=== PATIENT | male | born 1950 | race African-American/Black ===

== ENCOUNTER 2024-04-28 13:59 | Outpatient (AMB) | payer MEDICARE, SELFPAY ==
--- NOTE | 2024-04-28 14:15 | MHC.OFFVIS ---
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 No complaints. 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 Apparently had been seen by [facility] vascular at some point and was having routine surveillance ultrasounds. He reported white coat hypertension and requested to change providers and he now presents to us for vascular evaluation. Upon discussion with him he can easily walk 3-4 blocks with no significant difficulty. He smokes currently about a half a pack per day and is a nondiabetic. Is being maintained on an aspirin and statin. His last ultrasound was done a proximally 6 months prior. He denies any wounds or ulcerations at the current time. He now presents to us for vascular evaluation. Review of Systems Const All systems reviewed & are unremarkable except as noted in HPI and below Reports no additional complaints ENT Reports Normal hearing present Card Denies chest pain, Denies chest pain at rest, Denies chest pain with activity and Denies pedal edema Resp Denies cough GI Denies abdominal pain Musc Denies abnormal gait, Denies muscle cramps and Denies radiating pain into limb Skin/Breast Denies skin ulcer and Denies wounds Neuro Reports Normal hearing present and Denies abnormal gait Psych Reports no additional complaints Physical Exam Const General: cooperative, healthy appearing and comfortable Orientation/consciousness: oriented to person, oriented to place and oriented to time HEENT Head: Yes normal to inspection Neck Neck: Yes normal visual inspection Carotids: no bruits Chest Chest palpation & inspection: normal inspection of the chest Resp Effort & Inspection: normal respiratory effort and able to speak in complete sentences Auscultation: clear to auscultation bilaterally, no crackles, no rales, no rhonchi and no wheezes Cardio Rate: regular rate Rhythm: regular rhythm Heart sounds: S1 normal heart sound present and S2 normal heart sound present Bruits: no carotid bruits Peripheral pulses: Peripheral pulses 2+ throughout GI Inspection: Yes normal to inspection Skin Wounds: no wounds Hair: normal Neuro General: oriented to person, oriented to place and oriented to time Cranial nerves: Yes CN's II-XII intact bilaterally and Yes Normal hearing present Cognition (Neuro): normal cognition Motor exam (neuro): 5/5 motor strength present throughout Extrem Other: venous exam: No significant superficial varicosities or spider telangiectasias, minimal edema General: No clubbing, No cyanosis and No edema Psych Appearance: grossly normal Mental Status: mental status grossly normal Speech and movement: Normal speech and movement present Results Reviewed Results Reviewed: Noninvasive arterial ultrasound dated 10/13/2023 demonstrates ELOISE on the right of 0.6 and on the left of 0.59. Written reports were reviewed only. I did not have access to [facility] images. Assessment & Plan Assessment & Plan (1) PAD (peripheral artery disease): Code(s): I73.9 - Peripheral vascular disease, unspecified Category: Medical Plan: In short patient has stable claudication. I did review the pathophysiology of peripheral vascular disease with the patient. In addition we did discuss routine conservative measures including a healthy diet and the importance of exercise and ambulation. We did discuss risk factor modification in particular smoking cessation. The patient will continue to to follow-up with surveillance follow-up in approximately 6 months which will be a year from his last exam. Thank you for allowing us to participate in this patient's care. If there are any questions or concerns please do not hesitate to contact us. Orders: Orders US arterial duplex LE BI 6 Months I73.9 - Peripheral vascular disease, unspecified Coding Level of Care Code New Pt Level 4 (69098) Complex EM visit Add On G2211 Diagnoses PAD (peripheral artery disease) I73.9
== END 2024-04-28 14:40 | disposition home or self-care (01) ==
PROVIDERS: PCP Family Medicine; Visit Provider Surgery Vascular Surgery
DX: I73.9 Peripheral vascular disease, unspecified (principal)
CPT/HCPCS: 99204; G2211

== ENCOUNTER → 2024-04-28 13:59 | Outpatient (BNVA) | payer MEDICARE, SELFPAY | PROVIDERS: PCP Family Medicine; Visit Provider Surgery Vascular Surgery | DX: I73.9 Peripheral vascular disease, unspecified (principal) | CPT/HCPCS: 99202 ==

== ENCOUNTER 2024-10-20 14:10 | Outpatient (REF) | payer MEDICARE, SELFPAY ==
--- NOTE | ~2024-10-20 | US_ITS ---
EXAMINATION: US NONINVASIVE ASSESSMENT OF THE BILATERAL LOWER EXTREMITY WITH ARTERIAL DUPLEX AND ANKLE BRACHIAL INDICES (ABIS) CLINICAL INFORMATION: Peripheral artery disease. COMPARISON: None available. TECHNIQUE: Duplex Doppler techniques with waveform analysis and measurement of velocities in the common femoral, profunda femoris, superficial femoral, popliteal and tibial arteries were performed. In addition, ankle pulse volume recordings, ankle pressure measurements and ankle brachial indices were obtained of the bilateral lower extremity arterial system. The study was performed only at rest. FINDINGS: AORTA: The proximal and mid aspects are not well seen due to bowel gas. The distal aorta velocity measures 50.6 cm/s. AP diameter of the distal aorta with the true lumen measuring 1.7 cm, and the false lumen measuring 2.8 cm. Maximal diameter = 3.1 cm. RIGHT ILIAC ARTERY: Common = 77.7 cm/s External = 135.6 cm/s (moderate stenosis) LEFT ILIAC ARTERY: Common = 55.5 cm/s External = 188 cm/s (moderate stenosis) NONINVASIVE ASSESSMENT OF THE ARTERIES OF BILATERAL LOWER EXTREMITIES WITH ABIs: RIGHT LEG: Ankle-brachial index: 0.42 Segmental BP: Right DP = 52. Ankle PVR waveforms: Abnormal, monophasic LEFT LEG: Ankle-brachial index: 0.62 Segmental BPD: Left PT = 70 Left DP = 77 Left ankle PVR waveforms: Abnormal, monophasic. ELOISE Reference: 0.9 - 1.4 = normal - no significant arterial disease 0.7 - 0.89 = mild peripheral arterial disease 0.51 - 0.69 = moderate peripheral arterial disease 0.50 = severe peripheral arterial disease FINDINGS: Atheromatous Plaque: Present. RIGHT FEMORAL RUNOFF VELOCITIES: The right common femoral artery measures 114.9 cm/s and monophasic. The right profunda femoral artery is 131.3 cm/s and is monophasic. The right proximal superficial femoral artery measures 69 cm/s and monophasic. The right mid superficial femoral artery is occluded. Collaterals noted. The right distal right superficial femoral artery measures 33.5 cm/s and is monophasic. The right popliteal velocity measures 41.8 cm/s and is monophasic. The right posterior tibial artery velocity measures 16.3 cm/s and is monophasic. The right peroneal artery measures 28.7 cm/s and is monophasic. The right anterior tibial artery measures 42.3 cm/s and is monophasic. The right dorsalis pedis artery measures 29.1 cm/s and is monophasic. LEFT FEMORAL RUNOFF VELOCITIES: The left common femoral artery measures 92.7 cm/s and monophasic. The left profunda femoral artery is 105.4 cm/s and is monophasic. The left proximal superficial femoral artery measures 60.1 cm/s and monophasic. The left mid superficial femoral artery is occluded. The left distal right superficial femoral artery measures 21.9 and is retrograde in flow. There are collaterals present. The left popliteal velocity measures 63.6 cm/s and is monophasic. The left posterior tibial artery velocity measures 35.3 cm/s and is monophasic. The right peroneal artery measures 44.9 cm/s and is monophasic. The right anterior tibial artery measures 31.8 cm/s and is monophasic. The right dorsalis pedis artery measures 16.7 cm/s and is monophasic. US/US arterial duplex BI w/ ELOISE IMPRESSION: 1. Severe bilateral peripheral artery disease. Bilateral abnormal ELOISE's. There is evidence for inflow disease in both CLINICAL SYSTEMS EDUCATOR's. 2. 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 3. Occlusion of the LEFT mid superficial femoral artery with collateralization seen. Retrograde flow in the distal RIGHT superficial femoral artery. 4. Moderate stenoses of both external iliac arteries. 5. Proximal and mid aorta is obscured by gas. 6. Distal aorta measures 3.1 cm maximally. Electronically signed by: Timur Haddad MD 10/21/2024 01:18 PM EDT
--- NOTE | ~2024-10-20 | US_ITS ---
EXAMINATION: US NONINVASIVE ASSESSMENT OF THE BILATERAL LOWER EXTREMITY WITH ARTERIAL DUPLEX AND ANKLE BRACHIAL INDICES (ABIS) CLINICAL INFORMATION: Peripheral artery disease. COMPARISON: None available. TECHNIQUE: Duplex Doppler techniques with waveform analysis and measurement of velocities in the common femoral, profunda femoris, superficial femoral, popliteal and tibial arteries were performed. In addition, ankle pulse volume recordings, ankle pressure measurements and ankle brachial indices were obtained of the bilateral lower extremity arterial system. The study was performed only at rest. FINDINGS: AORTA: The proximal and mid aspects are not well seen due to bowel gas. The distal aorta velocity measures 50.6 cm/s. AP diameter of the distal aorta with the true lumen measuring 1.7 cm, and the false lumen measuring 2.8 cm. Maximal diameter = 3.1 cm. RIGHT ILIAC ARTERY: Common = 77.7 cm/s External = 135.6 cm/s (moderate stenosis) LEFT ILIAC ARTERY: Common = 55.5 cm/s External = 188 cm/s (moderate stenosis) NONINVASIVE ASSESSMENT OF THE ARTERIES OF BILATERAL LOWER EXTREMITIES WITH ABIs: RIGHT LEG: Ankle-brachial index: 0.42 Segmental BP: Right DP = 52. Ankle PVR waveforms: Abnormal, monophasic LEFT LEG: Ankle-brachial index: 0.62 Segmental BPD: Left PT = 70 Left DP = 77 Left ankle PVR waveforms: Abnormal, monophasic. ELOISE Reference: 0.9 - 1.4 = normal - no significant arterial disease 0.7 - 0.89 = mild peripheral arterial disease 0.51 - 0.69 = moderate peripheral arterial disease 0.50 = severe peripheral arterial disease FINDINGS: Atheromatous Plaque: Present. RIGHT FEMORAL RUNOFF VELOCITIES: The right common femoral artery measures 114.9 cm/s and monophasic. The right profunda femoral artery is 131.3 cm/s and is monophasic. The right proximal superficial femoral artery measures 69 cm/s and monophasic. The right mid superficial femoral artery is occluded. Collaterals noted. The right distal right superficial femoral artery measures 33.5 cm/s and is monophasic. The right popliteal velocity measures 41.8 cm/s and is monophasic. The right posterior tibial artery velocity measures 16.3 cm/s and is monophasic. The right peroneal artery measures 28.7 cm/s and is monophasic. The right anterior tibial artery measures 42.3 cm/s and is monophasic. The right dorsalis pedis artery measures 29.1 cm/s and is monophasic. LEFT FEMORAL RUNOFF VELOCITIES: The left common femoral artery measures 92.7 cm/s and monophasic. The left profunda femoral artery is 105.4 cm/s and is monophasic. The left proximal superficial femoral artery measures 60.1 cm/s and monophasic. The left mid superficial femoral artery is occluded. The left distal right superficial femoral artery measures 21.9 and is retrograde in flow. There are collaterals present. The left popliteal velocity measures 63.6 cm/s and is monophasic. The left posterior tibial artery velocity measures 35.3 cm/s and is monophasic. The right peroneal artery measures 44.9 cm/s and is monophasic. The right anterior tibial artery measures 31.8 cm/s and is monophasic. The right dorsalis pedis artery measures 16.7 cm/s and is monophasic. US/US abdominal aortic aneurysm IMPRESSION: 1. Severe bilateral peripheral artery disease. Bilateral abnormal ELOISE's. There is evidence for inflow disease in both EQUIPMENT SERVICES ASSOCIATE's. 2. 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 3. Occlusion of the LEFT mid superficial femoral artery with collateralization seen. Retrograde flow in the distal RIGHT superficial femoral artery. 4. Moderate stenoses of both external iliac arteries. 5. Proximal and mid aorta is obscured by gas. 6. Distal aorta measures 3.1 cm maximally. Electronically signed by: Timur Haddad MD 10/21/2024 01:18 PM EDT
--- OUTSIDE RECORDS SUMMARY | 2024-10-20 17:20 | XMS_ITS | Data Portability ---
Author Organization [facility], Main Office Address [address] [facility] [address] [place] [id number] Care Team Providers Care Equity Manager Name Role Phone TIMOTEO BRONSON Urologist [phone] CONCHA ONTIVEROS Mica Spreader BRITTANY DEGROOT Superintendent Pier STAS WANG Correction Officer [facility] [phone] MARBELLA MIX Correction Officer [facility] CHERRIE SANCHEZ Exerciser ALICE LAM Primary Care Provider JIMMY SIMPSON Vascular Surgeon Assessment No assessment recorded. Plan of Treatment Reminders Order Date Submit Date Provider Last Modified By Organization Details Last Modified Time Details Appointments None recorde d. Lab HbA1c (hemogl obin A1c), blood 2023 [facility], [address], [place], [address], 4 10:06:37 CBC w/ auto diff 2023 024 MIRIAN [facility], [address], [place], [address], 4 10:06:33 CMP, serum or plasma 2023 024 [facility], [address], [place] [address], [address], 4 10:06:34 TSH, ultra-s ensitiv e, serum 2023 024 MIRIAN [facility] (Centralized Electronic Ordering - All Locations), Patient Can Go To The Location Of Their Choice, [id number] 4 10:06:38 magnesi um, serum or plasma 2023 024 M[facility], [address], [address], [place], [address], 4 10:06:39 lipid panel, serum 2023 024 M[facility], [address], [address], [place], [place], [address], 4 10:06:36 PSA, serum or plasma 2023 024 [facility], [address], [address], [place], [place], [address], 4 10:06:36 BMP, serum or plasma 2022 023 [facility], [address], [address], [place], [address], 3 21:57:21 hemoglo bin A1C, fingers tick 2022 023 In-Office Order, Internal Use Only DO Not Attach Compendium DO Not Attach Compendium, Do Not Delete/merge, [id number] 3 14:41:56 PSA, serum or plasma 2022 023 [facility], [address], [address], [place], [address], 3 21:49:13 Referral vascula r surgeon referra l - smoker poor complia nce for AAA and PAD. On ASA, statin, beta colleen added. 2023 024 guru Simpson, [address] [place] [address] Dr, [address], [place], [address], 4 10:38:50 psychia trist referra l - PTSD 2022 023 guru Not available 3 11:02:[address] referra l - BPH with obstruc tive symptom s. Elevate d PSA 2022 023 ugru [facility], [address] [facility], [place], [address], 3 14:02:50 Procedures None recorde d. Surgeries None recorde d. Imaging US, echocar diogram , transth oracic, complet e 2023 024 guru [facility] (Outt Non-Invasive Cardiology Scheduling), [address] [facility], [place], [address], 4 11:20:19 pulse volume recordi ng 2023 024 [email or web address] [facility], [address] [facility], [address], [place], [address], 4 09:17:53 ankle brachia l index, complet e 2023 024 guru [facility], [address] [facility], [address], [place], [address], 4 10:22:17 US, abdomin al aorta 2023 024 [facility] (Ultrasound), [address] [place], [address], 4 14:05:32 LDCT, chest, for lung cancer screeni ng - -The patient does not have lung cancer or signs of lung cancer at this time.-P atient has not had a chest CT in the last 12 months. *SHARED DECISIO N MAKING* I have discuss ed the benefit s and risks of lung cancer screeni ng in complia nce with [facility] shared decisio n making guideli ehsan includi ng early detecti on, radiati on exposur e, false negativ e rates, false positiv e rates, over-di agnosis , inciden frederic finding s, impact of comorbi dities and the ability or willing ness to undergo diagnos is and treatme nt if somethi ng concern ing is found.I have reviewe d with the patient the importa nce of abstine nce if a former smoker, and importa nce of smoking cessati on if a current smoker. I have furnish ed the patient with informa tion and resourc es availab le to quit smoking if appropr iate. 2022 023 [facility], [address] [facility], [place], [address], 13:17:03 Medication Orders metopro lol succina te ER 25 mg tablet, extende d release 24 hr 2023 024 MIRIAN Not available 13:37:46 Patient TargetsNo targets recorded. Patient Instructions Encounter Date Encounter Id Patient Instructions Last Modified By Organization Details Last Modified Time 10/23/2022 [id number] Quitting Tobacco : Care Instructions Not available 10/23/2022 14:41:56 Learning About Benefits of Quitting Smoking Not available 10/23/2022 14:41:56 Quitting Tobacco : Care Instructions Not available 10/23/2022 14:41:56 preventing falls : care instructions Not available 10/23/2022 14:41:56 medicare preventive services guide (male 74 rs and under) Not available 10/23/2022 14:41:57 chronic obstructive pulmonary disease (COPD): care instructions Not available 10/23/2022 14:42:20 dash diet: care instructions Not available 10/23/2022 14:42:46 03/06/2023 [id number] learning about lung cancer screening [email or web address] Not available 03/06/2023 15:21:32 08/07/2023 [id number] deciding about using medicines to quit smoking [email or web address] Not available 08/07/2023 15:24:35 Quitting Tobacco : Care Instructions ckokar Not available 08/07/2023 15:24:35 thoracic aortic aneurysm: care instructions ckokar Not available 08/07/2023 15:24:35 chronic obstructive pulmonary disease (COPD): care instructions ckokar Not available 08/07/2023 15:24:35 deciding about stopping your antidepressant ckokar Not available 08/07/2023 15:24:34 depression and chronic disease: care instructions ckokar Not available 08/07/2023 15:24:34 depression treatment: care instructions ckokar Not available 08/07/2023 15:24:34 Preventing Depression From Coming Back: Care Instructions ckokar Not available 08/07/2023 15:24:34 recovering from depression: care instructions ckokar Not available 08/07/2023 15:24:35 seasonal affecti ve disorder: care instructions ckokar Not available 08/07/2023 15:24:35 suicidal thought s in a family member: care instructions ckokar Not available 08/07/2023 15:24:35 high blood pressure: care instructions ckokar Not available 08/07/2023 15:24:34 learning about high blood pressure ckokar Not available 08/07/2023 15:24:34 03/10/2024 [id number] Peripheral Arterial Disease (PAD): Care Instructions ckokar Not available 03/10/2024 13:37:38 advance care planning: care instructions ckokar Not available 03/10/2024 13:45:13 starting a weigh t loss plan: care instructions ckokar Not available 03/10/2024 13:37:39 well visit, over 65: care instructions ckokar Not available 03/10/2024 13:37:38 preventing falls : care instructions ckokar Not available 03/10/2024 13:37:38 medicare preventive services guide (male 74 rs and under) ckokar Not available 03/10/2024 13:37:38 abnormal weight loss: care instructions ckokar Not available 03/10/2024 13:45:13 Reason for Referral Urologist Referral for Benig n prostatic hyperplasia BPH with obstructive symptoms. Elevated PSA Referring Physician: Ashley Aguilera, Internal Medicine, Encounter Date: 10/23/2022 Psychiatrist Referral for Po sttraumatic stress disorder PTSD Referring Physician: Ashley Aguilera, Internal Medicine, Encounter Date: 10/23/2022 Vascular Surgeon Referral fo r Peripheral vascular disease smoker poor compliance for AAA and PAD. On ASA, statin, beta colleen added. Referring Physician: Alice Lam, Family Medicine, Encounter Date: 03/10/2024 Results Created Date Observation Date Name Description Value Unit Range Abnormal Flag Note LastModifiedBy Organization Detail LastModifiedTime 08/29/1908/28/2021 UA W/REF LISETH CULTU RE appear/color LIGHT YELLO W CLEAR Not Available [facility] (Centralized Electronic Ordering - All Locations) Patient Can Go To The Location Of Their Choice, 08/28/2021 20:45:46 08/29/1908/28/2021 UA W/REF LISETH CULTU RE sp. gravity 1.019 (1.002 -1.030 ) Not Available [facility] (Centralized Electronic Ordering - All Locations) Patient Can Go To The Location Of Their Choice, 08/28/2021 20:45:46 08/29/1908/28/2021 UA W/REF LISETH CULTU RE urine pH 6.5 (5.0-8 .0) Not Available [facility] (Centralized Electronic Ordering - All Locations) Patient Can Go To The Location Of Their Choice, 08/28/2021 20:45:46 08/29/1908/28/2021 UA W/REF LISETH CULTU RE urine albumin TRACE (neg) abnormal Not Available [facility] (Central[facility] Ordering - All Locations) Patient Can Go To The Location Of Their Choice, 08/28/2021 20:45:46 08/29/1908/28/2021 UA W/REF LISETH CULTU RE urine glucose NEGATI VE (neg) Not Available [facility] (Centralized Electronic Ordering - All Locations) Patient Can Go To The Location Of Their Choice, 08/28/2021 20:45:46 08/29/1908/28/2021 UA W/REF LISETH CULTU RE urine ketones NEGATI VE (neg) Not Available [facility] (Centralized Electronic Ordering - All Locations) Patient Can Go To The Location Of Their Choice, 08/28/2021 20:45:46 08/29/1908/28/2021 UA W/REF LISETH CULTU RE urine bilirubin NEGATI VE (neg) Not Available [facility] (Centralized Electronic Ordering - All Locations) Patient Can Go To The Location Of Their Choice, 08/28/2021 20:45:46 08/29/1908/28/2021 UA W/REF LISETH CULTU RE urine hemoglobin NEGATI VE (neg) Not Available [facility] (Centralized Electronic Ordering - All Locations) Patient Can Go To The Location Of Their Choice, 08/28/2021 20:45:46 08/29/1908/28/2021 UA W/REF LISETH CULTU RE urine nitrite NEGATI VE (neg) Not Available [facility] (Centralized Electronic Ordering - All Locations) Patient Can Go To The Location Of Their Choice, 08/28/2021 20:45:46 08/29/1908/28/2021 UA W/REF LISETH CULTU RE urine leukocyte NEGATI VE (neg) Not Available [facility] (Centralized Electronic Ordering - All Locations) Patient Can Go To The Location Of Their Choice, 08/28/2021 20:45:46 08/29/1908/28/2021 UA W/REF LISETH CULTU RE urobilinogen NORMAL mg/dL (norm) Not Available [facility] (Central[facility] Ordering - All Locations) Patient Can Go To The Location Of Their Choice, 08/28/2021 20:45:46 08/29/1908/28/2021 UA W/REF LISETH CULTU RE urine WBCs 2 /hpf (0-5) Not Available [facility] (Centralized Electronic Ordering - All Locations) Patient Can Go To The Location Of Their Choice, 08/28/2021 20:45:46 08/29/1908/28/2021 UA W/REF LISETH CULTU RE urine RBCs 1 /hpf (0-3) Not Available [facility] (Centralized Electronic Ordering - All Locations) Patient Can Go To The Location Of Their Choice, 08/28/2021 20:45:46 08/29/19 22 08/28/2021 UA W/REF LISETH CULTU RE mucus SLIGHT /lpf Not Available [facility] (Centralized Electronic Ordering - All Locations) Patient Can Go To The Location Of Their Choice, 08/28/2021 20:45:46 08/29/1908/28/2021 UA W/REF LISETH CULTU RE squamous epith <1 /hpf (0-8) Not Available [facility] (Central[facility] Ordering - All Locations) Patient Can Go To The Location Of Their Choice, 08/28/2021 20:45:46 08/29/19 22 08/28/2021 UA W/REF LISETH CULTU RE clarity CLEAR (clear ) Not Available [facility] (Centralized Electronic Ordering - All Locations) Patient Can Go To The Location Of Their Choice, 08/28/2021 20:45:46 08/29/19 22 08/28/2021 UA W/REF LISETH CULTU RE culture indication CULTUR E NOT INDICA MELONY Not Available [facility] (Centralized Electronic Ordering - All Locations) Patient Can Go To The Location Of Their Choice, 08/28/2021 20:45:46 08/29/1908/28/2021 HEMOG LOBIN A1C hemoglobin A1C 6.3 % (4.0-5 .6) high MONIT ORING : In known diabe tic patie nts, hemog lobin A1c targe ts shoul d be discu ssed with healt h care provi em. DIAGN OSTIC USE: The Ameri can Diabe ross Assoc iatio n (ADA) and the World Healt h Organ izati on (WHO) recom mend the use of HbA1c to diagn ose diabe ross using a thres hold of 6.5%. Patie nts who have an HbA1c betwe en 5.7% and 6.4% are consi dered at incre ased risk for devel oping diabe ross in the futur eElsy CAUTI ON: False ly low HbA1c resul ts may be obser skylar in patie nts with hemol ytic anemi a, homoz ygous forms of abnor mal hemog lobin (e.g. SS, CC, SC), pregn christa, recen t blood loss or hemog lobin F great er than 7%. Fruct osami ne may be used as an alter nora test in these cases . REFER ENCE: ADA: Stand ards of Medic al Care in Diabe ross 2019, The Journ al of Clini lisa and Appli ed Resea rch and Educa tion Volum e 43, Suppl ement 1 Not Available [facility] (Centralized Electronic Ordering - All Locations) Patient Can Go To The Location Of Their Choice, 08/28/2021 20:52:53 08/29/1908/28/2021 SEDIM ENTAT ION RATE, AUTOM ATED sedimentatio n rate,automat ed 17 mm/HR (0-15) high Not Available [facility] (Centralized Electronic Ordering - All Locations) Patient Can Go To The Location Of Their Choice, 08/28/2021 20:56:20 08/29/1908/28/2021 COMPL ETE CBC WITH DIFF WBC 8.2 K/mm3 (4.0-1 1.0) Not Available [facility] (Centralized Electronic Ordering - All Locations) Patient Can Go To The Location Of Their Choice, 08/28/2021 21:27:57 08/29/19 22 08/28/2021 COMPL ETE CBC WITH DIFF RBC 5.57 M/mm3 (4.70- 6.10) Not Available [facility] (Centralized Electronic Ordering - All Locations) Patient Can Go To The Location Of Their Choice, 08/28/2021 21:27:57 08/29/19 22 08/28/2021 COMPL ETE CBC WITH DIFF HGB 15.2 gm/dL (13.7- 17.1) Not Available [facility] (Centralized Electronic Ordering - All Locations) Patient Can Go To The Location Of Their Choice, 08/28/2021 21:27:57 08/29/1908/28/2021 COMPL ETE CBC WITH DIFF HCT 48.1 % (40.5- 50.0) Not Available [facility] (Centralized Electronic Ordering - All Locations) Patient Can Go To The Location Of Their Choice, 08/28/2021 21:27:57 08/29/1908/28/2021 COMPL ETE CBC WITH DIFF MCV 86.4 fL (80.0- 94.0) Not Available [facility] (Centralized Electronic Ordering - All Locations) Patient Can Go To The Location Of Their Choice, 08/28/2021 21:27:57 08/29/19 22 08/28/2021 COMPL ETE CBC WITH DIFF MCH 27.3 pg (27.0- 34.0) Not Available [facility] (Centralized Electronic Ordering - All Locations) Patient Can Go To The Location Of Their Choice, 08/28/2021 21:27:57 08/29/1908/28/2021 COMPL ETE CBC WITH DIFF MCHC 31.6 g/dL (33.0- 37.0) low Not Available [facility] (Centralized Electronic Ordering - All Locations) Patient Can Go To The Location Of Their Choice, 08/28/2021 21:27:57 08/29/19 22 08/28/2021 COMPL ETE CBC WITH DIFF plt 250 K/mm3 (150-4 60) Not Available [facility] (Centralized Electronic Ordering - All Locations) Patient Can Go To The Location Of Their Choice, 08/28/2021 21:27:57 08/29/19 22 08/28/2021 COMPL ETE CBC WITH DIFF RDW-SD 46.7 fL (<47.0 ) Not Available [facility] (Centralized Electronic Ordering - All Locations) Patient Can Go To The Location Of Their Choice, 08/28/2021 21:27:57 08/29/19 22 08/28/2021 COMPL ETE CBC WITH DIFF MPV 11.0 fL (9.4-1 2.4) Not Available [facility] (Centralized Electronic Ordering - All Locations) Patient Can Go To The Location Of Their Choice, 08/28/2021 21:27:57 08/29/1908/28/2021 COMPL ETE CBC WITH DIFF automated NRBC 0.0 #/100 _WBC' s Not Available [facility] (Centralized Electronic Ordering - All Locations) Patient Can Go To The Location Of Their Choice, 08/28/2021 21:27:57 08/29/19 22 08/28/2021 COMPL ETE CBC WITH DIFF abs. NRBC 0.0 K/mm3 Not Available [facility] (Centralized Electronic Ordering - All Locations) Patient Can Go To The Location Of Their Choice, 08/28/2021 21:27:57 08/29/19 22 08/28/2021 COMPL ETE CBC WITH DIFF neut # 4.8 K/mm3 (1.3-7 .0) Not Available [facility] (Centralized Electronic Ordering - All Locations) Patient Can Go To The Location Of Their Choice, 08/28/2021 21:27:57 08/29/1908/28/2021 COMPL ETE CBC WITH DIFF lymph # 2.3 K/mm3 (0.8-3 .1) Not Available [facility] (Centralized Electronic Ordering - All Locations) Patient Can Go To The Location Of Their Choice, 08/28/2021 21:27:57 08/29/1908/28/2021 COMPL ETE CBC WITH DIFF mono# 0.9 K/mm3 (0.4-1 .3) Not Available [facility] (Centralized Electronic Ordering - All Locations) Patient Can Go To The Location Of Their Choice, 08/28/2021 21:27:57 08/29/1908/28/2021 COMPL ETE CBC WITH DIFF eo # 0.1 K/mm3 (0.0-0 .4) Not Available [facility] (Centralized Electronic Ordering - All Locations) Patient Can Go To The Location Of Their Choice, 08/28/2021 21:27:57 08/29/1908/28/2021 COMPL ETE CBC WITH DIFF baso # 0.0 K/mm3 (0.0-0 .1) Not Available [facility] (Centralized Electronic Ordering - All Locations) Patient Can Go To The Location Of Their Choice, 08/28/2021 21:27:57 08/29/1908/28/2021 COMPL ETE CBC WITH DIFF abs. imm gran 0.0 K/mm3 Not Available [facility] ([facility]ized [facility] Ordering - All Locations) Patient Can Go To The Location Of Their Choice, 08/28/2021 21:27:57 08/29/1908/28/2021 COMPL ETE CBC WITH DIFF neut 58.1 % (44-76 ) Not Available [facility] (Centralized Electronic Ordering - All Locations) Patient Can Go To The Location Of Their Choice, 08/28/2021 21:27:57 08/29/1908/28/2021 COMPL ETE CBC WITH DIFF lymph 28.3 % (15-43 ) Not Available [facility] (Centralized Electronic Ordering - All Locations) Patient Can Go To The Location Of Their Choice, 08/28/2021 21:27:57 08/29/1908/28/2021 COMPL ETE CBC WITH DIFF monocyte 11.1 % (4.5-1 0.5) high Not Available [facility] (Centralized Electronic Ordering - All Locations) Patient Can Go To The Location Of Their Choice, 08/28/2021 21:27:57 08/29/19 22 08/28/2021 COMPL ETE CBC WITH DIFF eo 1.7 % (0-6) Not Available [facility] (Centralized Electronic Ordering - All Locations) Patient Can Go To The Location Of Their Choice, 08/28/2021 21:27:57 08/29/19 22 08/28/2021 COMPL ETE CBC WITH DIFF baso 0.4 % (0-2) Not Available [facility] (Centralized Electronic Ordering - All Locations) Patient Can Go To The Location Of Their Choice, 08/28/2021 21:27:57 08/29/19 22 08/28/2021 COMPL ETE CBC WITH DIFF imm gran 0.4 % Not Available [facility] (Centralized Electronic Ordering - All Locations) Patient Can Go To The Location Of Their Choice, 08/28/2021 21:27:57 08/29/1908/28/2021 HEMOG LOBIN A1C hemoglobin A1C 6.3 % (4.0-5 .6) high MONIT ORING : In known diabe tic patie nts, hemog lobin A1c targe ts shoul d be discu ssed with healt h care provi em. DIAGN OSTIC USE: The Ameri can Diabe ross Assoc iatio n (ADA) and the World Healt h Organ izati on (WHO) recom mend the use of HbA1c to diagn ose diabe ross using a thres hold of 6.5%. Patie nts who have an HbA1c betwe en 5.7% and 6.4% are consi dered at incre ased risk for devel oping diabe ross in the futur e. CAUTI ON: False ly low HbA1c resul ts may be obser skylar in patie nts with hemol ytic anemi a, homoz ygous forms of abnor mal hemog lobin (e.g. SS, CC, SC), pregn christa, recen t blood loss or hemog lobin F great er than 7%. Fruct osami ne may be used as an alter nora test in these cases . REFER ENCE: ADA: Stand ards of Medic al Care in Diabe ross 2019, The Journ al of Clini lisa and Appli ed Resea [facility] and Educa tion Volum e 43, Suppl ement 1 Not Available [facility] (Centralized Electronic Ordering - All Locations) Patient Can Go To The Location Of Their Choice, 08/28/2021 21:39:27 08/29/1908/29/2021 COMPR EHENS MUMTAZ METAB OLIC PANL glucose 103 mg/dL (70-99 ) high Not Available [facility] (Centralized Electronic Ordering - All Locations) Patient Can Go To The Location Of Their Choice, 08/29/2021 02:21:04 08/29/1908/29/2021 COMPR EHENS MUMTAZ METAB OLIC PANL BUN 14 mg/dL (8-23) Not Available [facility] (Centralized Electronic Ordering - All Locations) Patient Can Go To The Location Of Their Choice, 08/29/2021 02:21:08/29/19 22 08/29/2021 COMPR EHENS MUMTAZ METAB OLIC PANL creatinine 0.8 mg/dL (0.7-1 .2) Not Available [facility] (Centralized Electronic Ordering - All Locations) Patient Can Go To The Location Of Their Choice, 08/29/2021 02:21:04 08/29/19 22 08/29/2021 COMPR EHENS MUMTAZ METAB OLIC PANL sodium 140 mmol/ L (133-1 45) Not Available [facility] (Centralized Electronic Ordering - All Locations) Patient Can Go To The Location Of Their Choice, 08/29/2021 02:21:04 08/29/1908/29/2021 COMPR EHENS MUMTAZ METAB OLIC PANL potassium 4.5 mmol/ L (3.6-5 .2) Not Available [facility] (Centralized Electronic Ordering - All Locations) Patient Can Go To The Location Of Their Choice, 08/29/2021 02:21:04 08/29/19 22 08/29/2021 COMPR EHENS MUMTAZ METAB OLIC PANL chloride 101 mmol/ L (98-10 7) Not Available [facility] (Centralized Electronic Ordering - All Locations) Patient Can Go To The Location Of Their Choice, 08/29/2021 02:21:08/29/19 22 08/29/2021 COMPR EHENS MUMTAZ METAB OLIC PANL bicarbonate 30 mmol/ L (22-29 ) high Not Available [facility] (Centralized Electronic Ordering - All Locations) Patient Can Go To The Location Of Their Choice, 08/29/2021 02:21:08/29/19 22 08/29/2021 COMPR EHENS MUMTAZ METAB OLIC PANL anion gap 9 (4-17) Not Available [facility] (Centralized Electronic Ordering - All Locations) Patient Can Go To The Location Of Their Choice, 08/29/2021 02:21:08/29/19 22 08/29/2021 COMPR EHENS MUMTAZ METAB OLIC PANL albumin 4.4 gm/dL (3.4-4 .8) Not Available [facility] (Centralized Electronic Ordering - All Locations) Patient Can Go To The Location Of Their Choice, 08/29/2021 02:21:08/29/19 22 08/29/2021 COMPR EHENS MUMTAZ METAB OLIC PANL calcium 9.3 mg/dL (8.6-1 0.5) Not Available [facility] (Centralized Electronic Ordering - All Locations) Patient Can Go To The Location Of Their Choice, 08/29/2021 02:21:04 08/29/19 22 08/29/2021 COMPR EHENS MUMTAZ METAB OLIC PANL bilirubin,to frederic 0.3 mg/dL (0-1.2 ) Not Available [facility] (Centralized Electronic Ordering - All Locations) Patient Can Go To The Location Of Their Choice, 08/29/2021 02:21:04 08/29/19 22 08/29/2021 COMPR EHENS MUMTAZ METAB OLIC PANL total protein 7.1 gm/dL (6.2-8 .2) Not Available [facility] (Centralized Electronic Ordering - All Locations) Patient Can Go To The Location Of Their Choice, 08/29/2021 02:21:04 08/29/19 22 08/29/2021 COMPR EHENS MUMTAZ METAB OLIC PANL Ag ratio 1.6 Not Available [facility] (Centralized Electronic Ordering - All Locations) Patient Can Go To The Location Of Their Choice, 08/29/2021 02:21:04 08/29/19 22 08/29/2021 COMPR EHENS MUMTAZ METAB OLIC PANL AST 17 U/L (0-40) Not Available [facility] (Centralized Electronic Ordering - All Locations) Patient Can Go To The Location Of Their Choice, 08/29/2021 02:21:08/29/19 22 08/29/2021 COMPR EHENS MUMTAZ METAB OLIC PANL alk phos 80 U/L (40-12 9) Not Available [facility] (Centralized Electronic Ordering - All Locations) Patient Can Go To The Location Of Their Choice, 08/29/2021 02:21:04 08/29/1908/29/2021 COMPR EHENS MUMTAZ METAB OLIC PANL ALT 19 U/L (0-41) Not Available [facility] (Centralized Electronic Ordering - All Locations) Patient Can Go To The Location Of Their Choice, 08/29/2021 02:21:04 08/29/1908/29/2021 COMPR EHENS MUMTAZ METAB OLIC PANL estimated GFR creatinine 94 mL/mi n/1.7 3_M2 Creat inine based estim ated glome rular filtr ation (eGFR ) in adult s is calcu lated using the [facility] ation recom [place] d 2020 CKD-E PI equat ion. Estim ates GFR from serum creat inine , age and sex. Not Available [facility] (Centralized Electronic Ordering - All Locations) Patient Can Go To The Location Of Their Choice, 08/29/2021 02:21:08/29/1908/29/2021 LIPID PANEL cholesterol, total 182 mg/dL (<200) Not Available [facility] ([facility] Ordering - All Locations) Patient Can Go To The Location Of Their Choice, 08/29/2021 02:21:08/29/19 22 08/29/2021 LIPID PANEL triglyceride 57 mg/dL (<150) Not Available [facility] ([facility] Order[facility] - All Locations) Patient Can Go To The Location Of Their Choice, 08/29/2021 02:21:08/29/1908/29/2021 LIPID PANEL HDL chol 52 mg/dL (>39) Not Available [facility] (Centralized Electronic Ordering - All Locations) Patient Can Go To The Location Of Their Choice, 08/29/2021 02:21:05 08/29/1908/29/2021 LIPID PANEL LDL cholesterol, calculated 119 mg/dL (0-130 ) Not Available [facility] (Centralized Electronic Ordering - All Locations) Patient Can Go To The Location Of Their Choice, 08/29/2021 02:21:05 08/29/1908/29/2021 LIPID PANEL non HDL cholesterol (calc) 130 mg/dL (<160) Not Available [facility] ([facility] Ordering - All Locations) Patient Can Go To The Location Of Their Choice, 08/29/2021 02:21:05 08/29/1908/29/2021 MAGNE SIUM magnesium 2.2 mg/dL (1.6-2 .3) Not Available [facility] (Centralized Electronic Ordering - All Locations) Patient Can Go To The Location Of Their Choice, 08/29/2021 02:21:07 08/29/1908/29/2021 PSA PSA 4.0 NG/mL (0-4) TEST PERFO RMED USING THE NORAH ELECT NORAH MILLU [employer] CENCE TOTAL PSA ASSAY . PSA VALUE S OBTAI ANDREINA WITH OTHER ASSAY METHO DS OR KITS CANNO T BE USED INTER ROBBINS EABLY . Not Available [facility] (Centralized Electronic Ordering - All Locations) Patient Can Go To The Location Of Their Choice, 08/29/2021 02:43:46 08/29/1908/29/2021 TSH WITH REFLE X TO FT4 TSH 0.49 uIU/m L (0.4-4 .2) Not Available [facility] (Centralized Electronic Ordering - All Locations) Patient Can Go To The Location Of Their Choice, 08/29/2021 02:43:49 08/29/1908/29/2021 BASIC METAB OLIC PANEL glucose 103 mg/dL (70-99 ) high Not Available [facility] (Centralized Electronic Ordering - All Locations) Patient Can Go To The Location Of Their Choice, 08/29/2021 02:54:32 08/29/1908/29/2021 BASIC METAB OLIC PANEL BUN 14 mg/dL (8-23) Not Available [facility] (Centralized Electronic Ordering - All Locations) Patient Can Go To The Location Of Their Choice, 08/29/2021 02:54:32 08/29/1908/29/2021 BASIC METAB OLIC PANEL creatinine 0.8 mg/dL (0.7-1 .2) Not Available [facility] (Centralized Electronic Ordering - All Locations) Patient Can Go To The Location Of Their Choice, 08/29/2021 02:54:32 08/29/1908/29/2021 BASIC METAB OLIC PANEL sodium 140 mmol/ L (133-1 45) Not Available [facility] (Centralized Electronic Ordering - All Locations) Patient Can Go To The Location Of Their Choice, 08/29/2021 02:54:32 08/29/1908/29/2021 BASIC METAB OLIC PANEL potassium 4.5 mmol/ L (3.6-5 .2) Not Available [facility] (Centralized Electronic Ordering - All Locations) Patient Can Go To The Location Of Their Choice, 08/29/2021 02:54:32 08/29/1908/29/2021 BASIC METAB OLIC PANEL chloride 101 mmol/ L (98-10 7) Not Available [facility] (Centralized Electronic Ordering - All Locations) Patient Can Go To The Location Of Their Choice, 08/29/2021 02:54:32 08/29/1908/29/2021 BASIC METAB OLIC PANEL bicarbonate 30 mmol/ L (22-29 ) high Not Available [facility] (Centralized Electronic Ordering - All Locations) Patient Can Go To The Location Of Their Choice, 08/29/2021 02:54:32 08/29/1908/29/2021 BASIC METAB OLIC PANEL anion gap 9 (4-17) Not Available [facility] (Centralized Electronic Ordering - All Locations) Patient Can Go To The Location Of Their Choice, 08/29/2021 02:54:32 08/29/1908/29/2021 BASIC METAB OLIC PANEL calcium 9.3 mg/dL (8.6-1 0.5) Not Available [facility] (Centralized Electronic Ordering - All Locations) Patient Can Go To The Location Of Their Choice, 08/29/2021 02:54:32 08/29/19 22 08/29/2021 BASIC METAB OLIC PANEL estimated GFR creatinine 94 mL/mi n/1.7 3_M2 Creat inine based estim ated glome cherry pimentel ation (eGFR ) in adult s is calcu lated using the Natio nal Kidne y Found ation recom [place] d 2020 CKD-E PI equat ion. Estim ates GFR from serum creat inine , age and sex. Not Available [facility] (Centralized Electronic Ordering - All Locations) Patient Can Go To The Location Of Their Choice, 08/29/2021 02:54:32 08/29/1908/29/2021 FOLIC ACID folic acid 14.7 NG/mL (4.5-3 2.2) Sampl e sligh tly hemol yzed. Resul ts may be false ly eleva melony due to hemol ysis. Not Available [facility] (Centralized Electronic Ordering - All Locations) Patient Can Go To The Location Of Their Choice, 08/29/2021 03:19:47 08/29/1908/29/2021 VITAM IN B12 vitamin B12 748 pg/mL (232-1 245) Not Available [facility] (Centralized Electronic Ordering - All Locations) Patient Can Go To The Location Of Their Choice, 08/29/2021 03:51:19 08/29/1908/29/2021 SYPHI LIS TESTI NG syphilis screen by mike (neg) normal NEGAT MUMTAZ Refer ence range : Negat mumtaz This test was perfo rmed on the Abbot t Archi tect immun oassa y syste m. Not Available [facility] (Centralized Electronic Ordering - All Locations) Patient Can Go To The Location Of Their Choice, 08/29/2021 08:59:42 08/29/1908/29/2021 SYPHI LIS TESTI NG RPR titer result NOT INDICA MELONY Not Available [facility] (Centralized Electronic Ordering - All Locations) Patient Can Go To The Location Of Their Choice, 08/29/2021 08:59:42 08/29/19 22 08/29/2021 SYPHI LIS TESTI NG tppa result NOT INDICA MELONY Not Available [facility] (Centralized Electronic Ordering - All Locations) Patient Can Go To The Location Of Their Choice, [id number] 08/29/2021 08:59:42 08/29/1908/29/2021 SYPHI LIS TESTI NG syphilis interpretati on Indic ative of the absen ce of infec tion with Trepo nemal palli dum. Test may be negat mumtaz in cases of incub ating or early prima ry syphi lis. Consi em repea t testi ng in sever al weeks if clini lisa suspi cion is high. Not Available [facility] (Centralized Electronic Ordering - All Locations) Patient Can Go To The Location Of Their Choice, 08/29/2021 08:59:42 10/24/19 23 10/23/2022 hemog lobin A1C, finge rstic k A1C 6.1 % 4-6 abnormal Not Available In-Office Order Internal Use Only DO Not Attach Compendium DO Not Attach Compendium, Do Not Delete/merge, [id number] 10/23/2022 14:37:32 03/06/20 23 03/06/2023 PSA SCREE N PSA 4.3 NG/mL (0-4) high TEST PERFO RMED USING THE NORAH ELECT NORAH MILLU MINES CENCE TOTAL PSA ASSAY . PSA VALUE S OBTAI ANDREINA WITH OTHER ASSAY METHO DS OR KITS CANNO T BE USED INTER ROBBINS EAVIVY . Not Available [facility] (Centralized Electronic Ordering - All Locations) Patient Can Go To The Location Of Their Choice, 03/06/2023 21:49:13 03/06/2003/06/2023 BASIC METAB OLIC PANEL glucose 97 mg/dL (70-99 ) Not Available [facility] (Centralized Electronic Ordering - All Locations) Patient Can Go To The Location Of Their Choice, 03/06/2023 21:57:21 03/06/2003/06/2023 BASIC METAB OLIC PANEL BUN 13 mg/dL (8-23) Not Available [facility] (Centralized Electronic Ordering - All Locations) Patient Can Go To The Location Of Their Choice, 03/06/2023 21:57:21 03/06/20 23 03/06/2023 BASIC METAB OLIC PANEL creatinine 0.9 mg/dL (0.7-1 .2) Not Available [facility] (Centralized Electronic Ordering - All Locations) Patient Can Go To The Location Of Their Choice, [id number] 03/06/2023 21:57:21 03/06/2003/06/2023 BASIC METAB OLIC PANEL sodium 141 mmol/ L (133-1 45) Not Available [facility] ([facility]ized Electronic Ordering - All Locations) Patient Can Go To The Location Of Their Choice, [id number] 03/06/2023 21:57:21 03/06/2003/06/2023 BASIC METAB OLIC PANEL potassium 4.4 mmol/ L (3.6-5 .2) Not Available [facility] (Centralized Electronic Ordering - All Locations) Patient Can Go To The Location Of Their Choice, [id number] 03/06/2023 21:57:21 03/06/2003/06/2023 BASIC METAB OLIC PANEL chloride 101 mmol/ L (98-10 7) Not Available [facility] (Centralized Electronic Ordering - All Locations) Patient Can Go To The Location Of Their Choice, [id number] 03/06/2023 21:57:21 03/06/2003/06/2023 BASIC METAB OLIC PANEL bicarbonate 31 mmol/ L (22-29 ) high Not Available [facility] (Centralized Electronic Ordering - All Locations) Patient Can Go To The Location Of Their Choice, [id number] 03/06/2023 21:57:21 03/06/2003/06/2023 BASIC METAB OLIC PANEL anion gap 9 (4-17) Not Available [facility] (Centralized Electronic Ordering - All Locations) Patient Can Go To The Location Of Their Choice, [id number] 03/06/2023 21:57:21 03/06/2003/06/2023 BASIC METAB OLIC PANEL calcium 9.5 mg/dL (8.6-1 0.5) Not Available [facility] ([facility]ized Electronic Ordering - All Locations) Patient Can Go To The Location Of Their Choice, [id number] 03/06/2023 21:57:21 03/06/2003/06/2023 BASIC METAB OLIC PANEL estimated GFR creatinine 92 mL/mi n/1.7 3_M2 Creat inine based estim ated glome cherry isaactr ation (eGFR ) in adult s is calcu lated using the Natio nal Kidne y Found ation recom [place] d 2020 CKD-E PI equat ion. Estim ates GFR from serum creat inine , age and sex. Not Available [facility] (Centralized Electronic Ordering - All Locations) Patient Can Go To The Location Of Their Choice, [id number] 03/06/2023 21:57:21 03/17/2003/18/2024 CBC WITH DIFFE RENTI AL/PL ATELE T WBC 9.0 x10e3 /uL 3.4-10 .8 normal Eff ectiv e Decem mellissa 2023 profi radha [id number] 5 WBC will be made* * non-o rdera ble as a stand -jina e order code. Not Available [facility] ([facility]) [address] [place], [address], 03/18/2024 10:06:33 03/17/20 24 03/18/2024 CBC WITH DIFFE RENTI AL/PL ATELE T RBC 5.55 x10e6 /uL 4.14-5 .80 normal Not Available [facility] ([facility]) [address] [place], [address], 03/18/2024 10:06:33 03/17/20 24 03/18/2024 CBC WITH DIFFE RENTI AL/PL ATELE T hemoglobin 15.3 g/dL 13.0-1 7.7 normal Not Available [facility] ([facility]) [address] [place], [address], 03/18/2024 10:06:33 03/17/20 24 03/18/2024 CBC WITH DIFFE RENTI AL/PL ATELE T hematocrit 48.6 % 37.5-5 1.0 normal Not Available [facility] ([facility]) [address] [place], [address], 03/18/2024 10:06:33 03/17/20 24 03/18/2024 CBC WITH DIFFE RENTI AL/PL ATELE T MCV 88 fL 79-97 normal Not Available [facility] ([facility]) [address] [place], [address], 03/18/2024 10:06:33 03/17/20 24 03/18/2024 CBC WITH DIFFE RENTI AL/PL ATELE T MCH 27.6 pg 26.6-3 3.0 normal Not Available [facility] ([facility]) [address] [place], [address], 03/18/2024 10:06:33 03/17/20 24 03/18/2024 CBC WITH DIFFE RENTI AL/PL ATELE T MCHC 31.5 g/dL 31.5-3 5.7 normal Not Available [facility] ([facility]) [address] [place], [address], 03/18/2024 10:06:33 03/17/20 24 03/18/2024 CBC WITH DIFFE RENTI AL/PL ATELE T RDW 14.0 % 11.6-1 5.4 Not Available [facility] ([facility]) [address] [place], [address], 03/18/2024 10:06:33 03/17/20 24 03/18/2024 CBC WITH DIFFE RENTI AL/PL ATELE T platelets 267 x10e3 /uL 150-45 0 normal Not Available [facility] ([facility]) [address] [place], [address], 03/18/2024 10:06:33 03/17/20 24 03/18/2024 CBC WITH DIFFE RENTI AL/PL ATELE T neutrophils 61 % not estab. normal Not Available [facility] ([facility]) [address] [place], [address], 03/18/2024 10:06:33 03/17/20 24 03/18/2024 CBC WITH DIFFE RENTI AL/PL ATELE T lymphs 26 % not estab. normal Not Available [facility] ([facility]) [address] [place], [address], 03/18/2024 10:06:33 03/17/20 24 03/18/2024 CBC WITH DIFFE RENTI AL/PL ATELE T monocytes 11 % not estab. normal Not Available [facility] ([facility]) [address] [facility], [place], [address], 03/18/2024 10:06:33 03/17/20 24 03/18/2024 CBC WITH DIFFE RENTI AL/PL ATELE T eos 2 % not estab. normal Not Available [facility] ([facility]) [address] [place], [address], 03/18/2024 10:06:33 03/17/20 24 03/18/2024 CBC WITH DIFFE RENTI AL/PL ATELE T basos 0 % not estab. normal Not Available [facility] ([facility]) [address] [place], [address], 03/18/2024 10:06:33 03/17/20 24 03/18/2024 CBC WITH DIFFE RENTI AL/PL ATELE T immature cells SANITOR Not Available [facility] ([facility]) [address] [place], [address], 03/18/2024 10:06:33 03/17/20 24 03/18/2024 CBC WITH DIFFE RENTI AL/PL ATELE T neutrophils (absolute) 5.4 x10e3 /uL 1.4-7. 0 normal Not Available [facility] ([facility]) [address] [place], [address], 03/18/2024 10:06:33 03/17/20 24 03/18/2024 CBC WITH DIFFE RENTI AL/PL ATELE T lymphs (absolute) 2.3 x10e3 /uL 0.7-3. 1 normal Not Available [facility] ([facility]) [address] [place], [address], 03/18/2024 10:06:33 03/17/20 24 03/18/2024 CBC WITH DIFFE RENTI AL/PL ATELE T monocytes(ab solute) 1.0 x10e3 /uL 0.1-0. 9 above high normal Not Available [facility] ([facility]) [address] [facility], [place], [address], 03/18/2024 10:06:33 03/17/20 24 03/18/2024 CBC WITH DIFFE RENTI AL/PL ATELE T eos (absolute) 0.2 x10e3 /uL 0.0-0. 4 normal Not Available [facility] ([facility]) [address] [place], [address], 03/18/2024 10:06:33 03/17/20 24 03/18/2024 CBC WITH DIFFE RENTI AL/PL ATELE T baso (absolute) 0.0 x10e3 /uL 0.0-0. 2 normal Not Available [facility] ([facility]) [address] [facility], [place], [address], 03/18/2024 10:06:33 03/17/20 24 03/18/2024 CBC WITH DIFFE RENTI AL/PL ATELE T immature granulocytes 0 % not estab. Not Available [facility] ([facility]) [address] [place], [address], 03/18/2024 10:06:33 03/17/20 24 03/18/2024 CBC WITH DIFFE RENTI AL/PL ATELE T immature grans (abs) 0.0 x10e3 /uL 0.0-0. 1 Not Available [facility] ([facility]) [address] [place], [address], 03/18/2024 10:06:33 03/17/20 24 03/18/2024 CBC WITH DIFFE RENTI AL/PL ATELE T NRBC SANITOR Not Available [facility] ([facility]) [address] [place], [address], 03/18/2024 10:06:33 03/17/20 24 03/18/2024 CBC WITH DIFFE MARCEL AL/JOSE Rao hematology comments: SANITOR Not Available [facility] ([facility]) [address] [facility], [place], [address], 03/18/2024 10:06:33 03/17/20 24 03/18/2024 COMP. METAB OLIC PANEL (14) glucose 94 mg/dL 70-99 normal Not Available [facility] ([facility]) [address] [facility], [place], [address], 03/18/2024 10:06:34 03/17/20 24 03/18/2024 COMP. METAB OLIC PANEL (14) BUN 19 mg/dL 8-27 normal Not Available [facility] ([facility]) [address] [facility], [place], [address], 03/18/2024 10:06:34 03/17/20 24 03/18/2024 COMP. METAB OLIC PANEL (14) creatinine 0.93 mg/dL 0.76-1 .27 normal Not Available [facility] ([facility]) [address] [facility], [place], [address], 03/18/2024 10:06:34 03/17/20 24 03/18/2024 COMP. METAB OLIC PANEL (14) eGFR 87 mL/mi n/1.7 3 >59 normal Not Available [facility] ([facility]) [address] [facility], [place], [address], 03/18/2024 10:06:34 03/17/20 24 03/18/2024 COMP. METAB OLIC PANEL (14) BUN/creatini ne ratio 20 10-24 normal Not Available [facility] ([facility]) [address] [facility], [place], [address], 03/18/2024 10:06:34 03/17/20 24 03/18/2024 COMP. METAB OLIC PANEL (14) sodium 143 mmol/ L 134-14 4 normal Not Available [facility] ([facility]) [address] [facility] [place], [address], 03/18/2024 10:06:34 03/17/20 24 03/18/2024 COMP. METAB OLIC PANEL (14) potassium 4.9 mmol/ L 3.5-5. 2 normal Not Available [facility] ([facility]) [address] [facility] [place], [address], 03/18/2024 10:06:34 03/17/20 24 03/18/2024 COMP. METAB OLIC PANEL (14) chloride 103 mmol/ L 96-106 normal Not Available [facility] ([facility]) [address] [facility], [place], [address], 03/18/2024 10:06:34 03/17/20 24 03/18/2024 COMP. METAB OLIC PANEL (14) carbon dioxide, total 26 mmol/ L 20-29 normal Not Available [facility] ([facility]) [address] [facility] [place], [address], 03/18/2024 10:06:34 03/17/20 24 03/18/2024 COMP. METAB OLIC PANEL (14) calcium 9.2 mg/dL 8.6-10 .2 normal Not Available [facility] ([facility]) [address] [place], [address], 03/18/2024 10:06:34 03/17/20 24 03/18/2024 COMP. METAB OLIC PANEL (14) protein, total 7.4 g/dL 6.0-8. 5 normal Not Available [facility] ([facility]) [address] [place], [address], 03/18/2024 10:06:34 03/17/20 24 03/18/2024 COMP. METAB OLIC PANEL (14) albumin 4.3 g/dL 3.8-4. 8 normal Not Available [facility] ([facility]) [address] [facility] [place], [address], 03/18/2024 10:06:34 03/17/20 24 03/18/2024 COMP. METAB OLIC PANEL (14) globulin, total 3.1 g/dL 1.5-4. 5 Not Available [facility] ([facility]) [address] [facility] [place], [address], 03/18/2024 10:06:34 03/17/20 24 03/18/2024 COMP. METAB OLIC PANEL (14) bilirubin, total 0.2 mg/dL 0.0-1. 2 normal Not Available [facility] ([facility]) [address] [facility] [place], [address], 03/18/2024 10:06:34 03/17/20 24 03/18/2024 COMP. METAB OLIC PANEL (14) alkaline phosphatase 84 IU/L 44-121 normal Not Available [facility] ([facility]) [address] [facility] [place], [address], 03/18/2024 10:06:34 03/17/20 24 03/18/2024 COMP. METAB OLIC PANEL (14) AST (SGOT) 19 IU/L 0-40 normal Not Available [facility] ([facility]) [address] [facility] [place], [address], 03/18/2024 10:06:34 03/17/20 24 03/18/2024 COMP. METAB OLIC PANEL (14) ALT (SGPT) 14 IU/L 0-44 normal Not Available [facility] ([facility]) [address] [facility] [place], [address], 03/18/2024 10:06:34 03/17/20 24 03/18/2024 LIPID PANEL cholesterol, total 142 mg/dL 100-19 9 normal Not Available [facility] ([facility]) [address] [facility], [place], [address], 03/18/2024 10:06:35 03/17/20 24 03/18/2024 LIPID PANEL triglyceride s 56 mg/dL 0-149 normal Not Available [facility] ([facility]) [address] [facility], [place], [address], 03/18/2024 10:06:35 03/17/20 24 03/18/2024 LIPID PANEL HDL cholesterol 53 mg/dL >39 normal Not Available [facility] ([facility]) [address] [facility], [place], [address], 03/18/2024 10:06:35 03/17/20 24 03/18/2024 LIPID PANEL VLDL cholesterol lisa 12 mg/dL 5-40 Not Available [facility] ([facility]) [address] [place], [address], 03/18/2024 10:06:35 03/17/20 24 03/18/2024 LIPID PANEL LDL chol calc ([facility]) 77 mg/dL 0-99 Not Available [facility] ([facility]) [address] [place], [address], 03/18/2024 10:06:35 03/17/20 24 03/18/2024 LIPID PANEL LDL calc comment: SANITOR Not Available [facility] ([facility]) [address] [facility], [place], [address], 03/18/2024 10:06:35 03/17/20 24 03/17/2024 PSA TOTAL (REFL EX TO FREE) reflex criteria Commen t The perce nt free PSA is perfo rmed on a refle x basis only when the total PSA is betwe en 4.0 and 10.0 ng/mL . Not Available [facility] ([facility]) [address] [facility], [place], [address], 03/18/2024 10:06:36 03/17/20 24 03/18/2024 PSA TOTAL (REFL EX TO FREE) prostate specific Ag 4.6 NG/mL 0.0-4. 0 above high normal Norah ECLIA metho dolog y. Accor ding to the Ameri can Urolo g[employer] Assoc iatio n, Serum PSA shoul d decre ase and remai n at undet ectab le level s after radic al prost atect thu. The AUA defin es bioch emica l recur rence as an initi al PSA value 0.2 ng/mL or great er follo wed by a subse quent confi rmato ry PSA value 0.2 ng/mL or great er. Value s obtai andreina with diffe rent assay metho ds or kits canno t be used inter robbins eably . Resul ts canno t be inter prete d as absol kacy evide nce of the prese nce or absen ce of [place] se. Not Available [facility] ([facility]) [address] [place], [address], 03/18/2024 10:06:36 03/17/20 24 03/18/2024 PSA TOTAL (REFL EX TO FREE) PSA, free 1.42 NG/mL n/a Norah ECLIA metho dolog y. Not Available [facility] ([facility]) [address] [place], [address], 03/18/2024 10:06:36 03/17/20 24 03/18/2024 PSA TOTAL (REFL EX TO FREE) % free PSA 30.9 % The table below lists the proba bilit y of prost ate cance r for men with non-s uspic ious IRISH resul ts and total PSA betwe en 4 and 10 ng/mL , by patie nt age (Marta torrey et al, LINDA 1998, 279:1 542). % Free PSA 50-64 yr 65-75 yr 0.00- 10.00 % 56% 55% 10.01 -15.0 0% 24% 35% 15.01 -20.0 0% 17% 23% 20.01 -25.0 0% 10% 20% >25.0 0% 5% 9% Pleas e note: Zi cano et al did not make speci fic recom menda tidenzel brandt ding the use of perce nt free PSA for any other popul ation of men. Not Available [facility] ([facility]) [address] [facility], [place], [address], 03/18/2024 10:06:36 03/17/20 24 03/18/2024 HEMOG LOBIN A1C hemoglobin A1C 6.2 % 4.8-5. 6 above high normal Predi abete s: 5.7 - 6.4 Diabe ross: >6.4 Glyce pablo contr ol for adult s with diabe ross: <7.0 Not Available [facility] ([facility]) [address] [place], [address], 03/18/2024 10:06:37 03/17/20 24 03/18/2024 TSH RFX ON ABNOR MAL TO FREE T4 TSH 0.743 uIU/m L 0.450- 4.500 normal Not Available [facility] ([facility]) [address] [place], [address], 03/18/2024 10:06:38 03/17/20 24 03/18/2024 MAGNE SIUM magnesium 2.4 mg/dL 1.6-2. 3 above high normal Not Available [facility] ([facility]) [address] [place], [address], 03/18/2024 10:06:39 08/01/19 24 07/31/2023 CT chest ldct progr am follo w up CT Chest LDCT Progra m Follow Up Reason : Other: ; 6 MONTHS F U LDCT LUNG CANCER SCREEN ING PROGRA M CURREN T SMOKER , 32 PACK YEAR HX; Clinic al Questi on(s): Other: ; Specia l Instru ctions : BOOK AT [address] [facility], [place], [place] BOOK AFTER 06 25 2023 Visit type: Screen ing TECHNI QUE: Low-do se helica l CT of the chest withou t IV contra st (Adult Lung Cancer Screen ing) protoc ol was perfor med. Danielle l reform ats were obtain ed. Weight -based protoc ol using automa tic tube modula tion was used to optimi ze exposu re parame ters. CTDIvo l Body: 3.00 mGy, DLP Body: 114 mGy*cm . COMPAR PAOLO: 023 FINDIN GS: LUNG NODULE S: RIGHT lung: No new or enlarg ing nodule s. Sub 0.4 cm pulmon bindu nodule s are unchan ged LEFT lun.4 cm left upper lobe pulmon bindu nodule image 46 series 3. No change from 023 Previo usly noted 0.7 cm nodule in the left upper lobe has resolv ed No new or enlarg ing nodule s OTHER FINDIN GS: Stable emphys tiffany. IMPRES NICK: Nodule (s) with benign appear ance. Lung-R ADS catego ry 2- Benign , 1 year follow up LDCT recomm ended. WSN: [id number] Orderi ng Physic genet: Sunny Lam Dictat ed By: Sandra Salomon MD Dictat ed Date/T lilliana: 1:11 pm Review ed By: Sandra Salomon MD Signed By: Sandra Salomon MD Signed Date/T lilliana: 1:11 pm Transc ribed By: MAGDI Transc ribed Date/T lilliana: 12:58 pm Patien t Class: Outpat ient [email or web address] [facility] (Outpt Imaging) [address] [place], [address], 08/02/2023 17:01:28 08/01/19 24 08/01/2023 LDCT, chest , for lung cance r scree jaimie No observ ation [facility] ed[email or web address] [address] [place], [address], 08/02/2023 08:26:17 10/13/19 24 10/11/2023 ankle brach ial index , compl ete No observ ation record ed. [email or web address] [facility] (Pulmonary Lab) [address] [place], [address], 01/15/2024 08:59:38 11/11/19 24 11/11/2023 US, abdom inal aorta US Aorta Reason : Follow -up abdomi nal aortic aneury sm. COMPAR PAOLO: Vascul ar lab study 08/04/19 21. FINDIN GS: Modera te athero sclero tic plaque . AP diamet ers of the abdomi nal aorta and iliac arteri es as measur ed in the sagitt al plane: Proxim al aorta: 2.1 cm. Mid aorta: 1.9 cm. Distal aorta: Aneury sm measur ing 3.3 x 3.6 cm (AP x transv erse), previo usly 3.3 x 2.9 cm. Right common iliac artery : 1.1 cm. Left common iliac artery : 1.4 cm. IMPRES NICK: Infrar enal aortic aneury sm measur ing up to 3.3 cm AP. Abdomi nal aortic aneury sm measur ing 3.0-3. 4 cm as above. Recomm end follow -up ultras ound or CTA in 3 years per ACR and SVS guidel janice. WSN: [id number] Orderi ng Physic genet: Sunny Lam Dictat ed By: Sam Ferris MD Dictat ed Date/T lilliana: 2:02 pm Review ed By: Sam Ferris MD Signed By: Sam Ferris MD Signed Date/T lilliana: 2:02 pm Transc ribed By: MAGDI Transc ribed Date/T lilliana: 1:50 pm Patien t Class: Outpat ient [email or web address] [facility] (Outpt Imaging) [address] , [place], [address], 11/20/2023 16:02:43 11/11/19 24 11/11/2023 US, abdom inal aorta No observ ation record ed. [email or web address] [facility] (Ultrasound) [address], [place], [address], 11/12/2023 10:49:49 0408/13/2024 CT chest ldct lung progr am PROCED URE: CT Chest LDCT Lung Progra m INDICA TION: 73 years old Male for lung cancer screen ing. Reason : Other: ; LDCT LUNG CANCER SCREEN ING WAQAS M, VARGHESE T SMOKER , 33 PACK YEAR HX; Specia l Instru ctions : BOOK AT [address] [facility], [facility], [place] BOOK AFTER 07 [address] IN THE LAST 12 MONTHS NO LUNG CA OR SIGNS AND SYMPTO MS OF LUNG CA SCREEN ING VISIT: First. No compar paolo exam. TECHNI QUE: Low-do se axial helica l CT 1 and 3 mm images of the chest withou t IV contra st (Adult Lung Cancer Screen ing) perfor med. Axial 10 x 3 mm MIP recons tructi ons also provid ed. Danielle l and sagitt al reform ations obtain ed. Weight -based protoc ol using automa tic tube modula tion utiliz ed to optimi ze exposu re parame ters. CTDIvo l Body: 3.15 mGy, DLP Body: 121 mGy*cm . FINDIN GS: FISH FARMER VIEW FINDIN GS, LINES AND TUBES: None. TRACHE A AND CENTRA L AIRWAY S: Patent withou t eviden ce of trache al or endobr onchia l lesion . LUNGS AND PLEURA : Nodule s (axial series 3): RIGHT LUNG: No signif icant nodule seen. Small scatte red nodule s measur ing up to 3 mm unchan ged LEFT LUN.5 mm solid nodule facility manager histology omedia l LEFT lower lobe unchan ged, image 178. New 6.3 nodule facility manager histology olater al LEFT upper lobe image 102 since July 31, 2023 but alread y presen t on the exams of 2022. Small scatte red nodule s measur ing up to 3 mm unchan ged. Other lung findin gs: Modera te to severe centri lobula r emphys tiffany with upper lobe predom inance . Mild to modera te depend ent atelec tasis facility manager histology iorly in both lower lobes. No eviden ce of bronch iectas is.. No eviden ce of pleura l effusi ons. No eviden ce of pneumo thorax . HEART, MEDIAS TINUM AND LYMPH NODES: Evalua tion of the hilar lymph nodes is limite d by lack of IV contra st. No defini te enlarg ed hilar lymph nodes. No enlarg ed medias tinal, suprac lavicu lar or axilla ry lymph nodes. No cardio megaly . Severe degree of danielle ry artery calcif icatio ns.No perica rdial effusi on..Mo derate degree of athero sclero tic aortic wall calcif icatio n. Aorta is normal in calibe r. Pulmon bindu arteri es normal in calibe r. THYROI D GLAND: No focal lesion s or enlarg ement. CHEST WALL AND SOFT TISSUE S: No masses . DIAPHR AGM: Diaphr agm is unrema rkable . UPPER ABDOME N: Visual ized portio ns of the upper abdomi nal organs are unrema rkable . BONES: No fractu re or disloc ation. Mild kyphos is. No suspic ious osseou s lesion . Mild degene rative endpla te change s in the thorac ic spine. IMPRES NICK: 1. Benign small pulmon bindu nodule s. LUNG-R ADS CATEGO RY 2: Benign appear ance or behavi or. Contin ue annual screen ing with LDCT in 12 months . 2. No unexpe cted or concer jaimie incide ntal findin gs. LUNG-R ADS MODIFI ER: None. 3. Signif icant emphys tiffany. Severe danielle ry artery calcif icatio ns and modera te aortic wall calcif icatio ns. Catego rizati on based on Lung-R ADS 2 criter ia. https: //[email or web address] /[email or web address]- RADS/L [email or web address] Thank you for allowi ng me to partic ipate in the care of this patien t. WSN: [id number] Orderi ng Physic genet: Sunny Lam Dictat ed By: Chang Parikh MD Dictat ed Date/T lilliana: 4:24 pm Review ed By: Chang Parikh MD Signed By: Chang Parikh MD Signed Date/T lilliana: 4:24 pm Transc ribed By: CSB Transc ribed Date/T lilliana: 3:17 pm Patien t Class: Outanthony spann [email or web address] [facility] (Outpt Imaging) [address], [place], [address], 08/25/2024 11:43:20 08/18/19 25 08/13/2024 LDCT, chest , for lung cance r scree jaimie No observ ation record ed. [facility] [address], [place], [address], 08/17/2024 16:37:49 08/19/19 25 08/17/2024 LDCT, chest , for lung cance r scree jaimie No observ ation record ed. [facility] Lung Cancer Screening Program [address] [place] [address] [address], [place], [address], 08/18/2024 13:53:59 Result Notes None recorded. Problems Name Problem SNOMED Code Status Onset Date Resolution Date Notes Provider Name and Address Organization Details Recorded Time Screenin g for malignan t neoplasm of colon Completed 201312/07/2013 RECORDED 09/02/19 14 4:17PM BY TRELL SOLORZANO MA, DENIS ON/ADDEN DUM Not Available [facility] 4 05:25:07 Malaise and fatigue 285053991 Completed 201212/07/2013 RECORDED 08/21/19 13 2:42PM BY DENISE CAPUTO MA, QUINATI ON/ADDEN DUM Not Available [facility] 4 05:25:07 Laborato ry procedur e performe d 063852350 Completed 201212/07/2013 RECORDED 12/20/19 13 9:23AM BY TRELL SOLORZANO MA, QUINATI ON/ADDEN DUM Not Available [facility] 4 05:25:07 Immuniza tion refused Completed 201312/07/2013 RECORDED 09/02/19 14 4:17PM BY TRELL SOLORZANO MA, QUINATI ON/ADDEN DUM Not Available [facility] 4 05:25:07 Radiolog y result abnormal 250214661 Completed 201212/07/2013 RECORDED 09/11/19 13 9:33AM BY TRELL SOLORZANO MA, ANNOTATI ON/ADDEN DUM Not Available [facility] 4 05:25:07 Fatigue 86485973 Completed 01/06/2018 Lynsey cortes, [facility] 8 13:45:46 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 977650939 Active Not Available [facility] 2 08:40:37 Tobacco dependen ce syndrome 14621559 Active Not Available [facility] 2 08:40:37 Lesion of scalp 96084357327 0 Completed 06/04/2016 [place] Castle, [facility] 7 13:39:26 Blood in urine 04791466 Completed 06/04/2016 [place], [facility] 7 13:39:23 Blurring of visual image 010622663 Active 2017 Not Available [facility] 2 08:40:37 Prediabe ross 676135145 Active 2018 Not Available [facility] 2 08:40:37 History of polyp of colon 335293459 Active 2020 Not Available [facility] 2 08:40:37 Nicotine dependen ce 64131544 Active 2020 Not Available [facility] 2 08:40:37 Tomograp hy - chest abnormal 921155460 Active 2020 Not Available [facility] 2 08:40:37 Ulcer of palate 808917301 Active 2020 Not Available [facility] 2 08:40:37 Posttrau matic stress disorder 56643546 Active 2022 Ashley Aguilera PA-C [address], [place], [address] , [facility] 3 14:30:09 Benign prostati c hyperpla tripp 261887611 Completed 202208/07/2023 Alice Lam MD [address], [place], [address] , [facility] 4 00:23:41 Pulmonar y emphysem a 53729101 Active 2022 Ashlye Agiulera PA-C [address], [place], [address] , [facility] 3 14:41:45 Moderate recurren t major depressi on 48855033 Active 2022 Ashley Aguilera PA-C [address], [place], [address] , [facility] 3 17:05:28 Peripher al vascular disease 589329830 Active 2023 Alice Lam MD [address], [place], [address] , [facility] 4 08:57:26 Abdomina l aortic aneurysm 061462705 Active 2023 Repeat scan 3 yrs from 11/11/23 Alice Lam MD [address], [place], [address] , [facility] 4 14:18:48 Heart murmur 98259366 Active Not Available [facility] 2 08:40:37 Screenin g for malignan t neoplasm of colon Completed 201311/10/2013 RECORDED 09/02/19 14 4:17PM BY TRELL SOLORZANO MA, ANNOTATI ON/ADDEN DUM Not Available [facility] 4 14:08:42 Total urinary incontin ence 127444591 Completed 03/14/2014 Huber Dalton MD [address], [place], [address] , [facility] 4 20:09:39 Coronary atherosc lerosis 770952120 Active PCI to left Cx lesion 12/2012; LVEF 55% Not Available [facility] 2 08:40:37 Essentia l hyperten nick 45877591 Active Not Available [facility] 2 08:40:37 Flatulen ce, eructati on and gas pain 438600634 Completed 03/14/2014 Huber Dalton MD [address], [place], [address] , [facility] 4 20:09:39 Malaise and fatigue 287657977 Completed 201211/10/2013 RECORDED 08/21/19 13 2:42PM BY DENISE CAPUTO MA, ANNOTATI ON/ADDEN DUM Not Available [facility] 4 14:08:43 History of clinical finding in subject 363180615 Completed 03/14/2014 Huber Dalton MD [address], [place], [address] , [facility] 4 20:09:39 Hyperlip idemia 95201105 Active Not Available [facility] 2 08:40:37 Laborato ry procedur e performe d 148446707 Completed 201211/10/2013 RECORDED 12/20/19 13 9:23AM BY TRELL SOLORZANO MA, ANNOTATI ON/ADDEN DUM Not Available [facility] 4 14:08:43 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 1047720 Active Not Available [facility] 2 08:40:37 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 6971843 Completed 201211/10/2013 DATE: 10/2012; ; RECORDED 09/02/19 14 4:17PM BY TRELL SOLORZANO MA, OFFICE VISIT Not Available [facility] 4 14:08:43 Immuniza tion refused Completed 201311/10/2013 RECORDED 09/02/19 14 4:17PM BY TRELL SOLORZANO MA, ANNOTATI ON/ADDEN DUM Not Available [facility] 4 14:08:43 Radiolog y result abnormal 746975003 Completed 201211/10/2013 RECORDED 09/11/19 13 9:33AM BY TRELL SOLORZANO MA, ANNOTATI ON/ADDEN DUM Not Available [facility] 4 14:08:43 Patient status finding 803361013 Completed 03/14/2014 Huber Dalton MD [address], [place], [address] , [facility] 4 20:09:39 Problem Notes None recorded. Procedures Surgical History Date Name Laterality Status Provider Name and Address Organization Details Recorded Time 4 Advanced Care Planning completed Alice Lam MD [address], [place], [address], [facility] 03/10/2024 13:39:20 1 Six-Item Cognitive Test completed Delia Cullen MA [facility] 07/11/2020 10:35:34 9 cataract surgery completed Denise moura MA [facility] 06/10/2019 15:34:19 8 Mini-Cog Test completed Lynsey Michaels MA [facility] 01/06/2018 13:58:18 7 Fall Risk Assessment completed Denise moura MA [facility] 06/04/2016 13:41:21 7 Mini-Cog Test completed Denise moura MA [facility] 06/04/2016 13:43:11 6 Colonoscopy completed Delia Cullen MA [facility] 10/23/2022 14:08:21 Imaging Results None recorded. Procedure Notes None recorded. Medical Equipment None Reported. Allergies Allergen ID Allergen Name Allergen Category Reaction Reaction Severity Criticality Documentation Date Start Date Code Code System Note Provider Name and Address Organization Details Recorded Time 41311 carvedilo l medicatio n lighthead edness nausea Not available Not available Not available 03/06/2023 RxNorm Denise Lida kraus MA null, [facility] 3 15:00:19 5203 Product containin g angiotens in-conver ting enzyme inhibitor (product) medicatio n cough Not available Not available 11/10/2013 93120 009 SNOMED [facility] Mcmillan, [facility] [address] [address], [facility], [place], [address], [facility] 4 18:07:31 Medications Name Sig Start Date Stop Date Status Note LastModified by Organization Details LastModified Time losartan 50 mg tablet active Not Available Not Available Not Available amoxicill in 500 mg capsule 01/06 completed Not Available Not Available Not Available atorvasta tin 80 mg tablet TAKE 1 TABLET BY MOUTH DAILY 09/01 completed Not Available Not Available Not Available carvedilo l 25 mg tablet TAKE 1 TABLET BY MOUTH TWICE DAILY. DISCONTI NUE METOPROL OL 03/06 completed caused nausea and dizzines s Not Available Not Available Not Available ofloxacin 0.3 % eye drops INSTILL 1 DROP IN LEFT EYE FOUR TIMES DAILY 12/14 completed Not Available Not Available Not Available metoprolo l succinate ER 50 mg tablet,ex tended release 24 hr TAKE 1 TABLET BY MOUTH DAILY 10/23 completed Not Available Not Available Not Available phenytoin sodium extended 100 mg capsule 09/01 completed Not Available Not Available Not Available clopidogr el 75 mg tablet DAILY active Not Available Not Available Not Available chlorthal idone 25 mg tablet TAKE 1/2 TABLET BY MOUTH DAILY active Not Available Not Available No t Available amlodipin e 5 mg tablet TAKE 1 TABLET BY MOUTH EVERY DAY 04/30 completed Not Available Not Available Not Available ciproflox acin 500 mg tablet Take 1 tablet twice a day by oral route for 7 days. 06/04 completed Not Available Not Available Not Available aspirin 81 mg tablet,de layed release TAKE 1 TABLET BY MOUTH DAILY active Not Available Not Available No t Available spironola ctone 25 mg tablet TAKE 1/2 TABLET BY MOUTH DAILY active Not Available Not Available No t Available simvastat in 40 mg tablet DAILY 12/22 completed RECORDED 12/23/19 13 3:16PM BY DENISE CAPUTO MA, HISTORIC AL SUMMARY; Not Available Not Available Not Available ketorolac 0.5 % eye drops INSTILL 1 DROP IN LEFT EYE FOUR TIMES DAILY 01/12 completed Not Available Not Available Not Available isosorbid e dinitrate 30 mg tablet DAILY 11/04 completed RECORDED 11/05/19 14 2:52PM BY CHARLES ESCOBAR RN, HISTORIC AL SUMMARY; DR GABRIEL GE - PATIENT STATES THAT HE DOES NOT TAKE THIS Not Available Not Available Not Available prednisol one acetate 1 % eye drops,moises pension SHAKE LIQUID AND INSTILL 1 DROP IN LEFT EYE FOUR TIMES DAILY 12/14 completed Not Available Not Available Not Available tamsulosi n 0.4 mg capsule TAKE 2 CAPSULES BY MOUTH AT BEDTIME active Not Available Not Available No t Available amlodipin e 10 mg tablet TAKE 1 TABLET BY MOUTH DAILY active Not Available Not Available No t Available lisinopri l 10 mg tablet DAILY 09/01 completed RECORDED 09/02/19 14 4:55PM BY HUBER DALTON MD, OFFICE VISIT; Not Available Not Available Not Available nitroglyc roxy 0.4 mg sublingua l tablet Place 1 tablet as needed by sublingu al route. 12/22 completed Not Available Not Available Not Available aspirin 81 mg tablet Take 1 tablet every day by oral route. 09/01 completed Not Available Not Available Not Available metoprolo l succinate ER 25 mg tablet,ex tended release 24 hr TAKE 1 TABLET BY MOUTH EVERY DAY 2024 active Not Available Not Available Not Avai lable losartan 100 mg tablet TAKE 1 TABLET BY MOUTH DAILY 10/23 completed Not Available Not Available Not Available finasteri de 5 mg tablet Take 1 tablet every day by oral route as needed for 90 days. 12/22 completed Not Available Not Available Not Available ezetimibe 10 mg tablet TAKE 1 TABLET BY MOUTH DAILY active Not Available Not Available No t Available rosuvasta tin 10 mg tablet TAKE 1 TABLET BY MOUTH DAILY active Not Available Not Available No t Available Crestor 40 mg tablet Take 1 tablet every day by oral route at bedtime for 30 days. active Not Available Not Available No t Available metoprolo l tartrate 25 mg tablet TAKE 1 TABLET BY MOUTH EVERY DAY 04/30 completed Not Available Not Available Not Available Boostrix Tdap 2.5 Lf unit-8 mcg-5 Lf/0.5 mL intramusc ular syringe 05/26 completed Not Available Not Available Not Available blood pressure monitor DAILY MONITORI NG OF BP FOR HTN 2013 active Not Available Not Available Not Avai lable Chantix Starting Month Box 0.5 mg (11)-1 mg (42) tablets in dose pack active Not Available Not Available Not Available Chantix Starting Month Box Starter pack 2018 active PER Cardiolo gy Not Available Not Available Not Available Fluzone High-Dose 3524-9162 (PF) 180 mcg/0.5 mL intramusc ular syringe 05/26 completed Not Available Not Available Not Available Vitals Date Recorded Body height Body mass index (BMI) Body weight Heart rate Oxygen saturation Oxygen saturation in Arterial blood by Pulse oximetry Body temperature Systolic blood pressure Diastolic blood pressure Provider Name and Address Organization Details Last Updated DateTime 4 173.99 cm 28.8 kg/m2 64280.7 4 g 66 /min 95 % 95 % 98 [degF] 131 mm[Hg] 80 mm[Hg] Marie Luna [facility] 4 14:58:50 Date Recorded Body height Body mass index (BMI) Body weight Heart rate Oxygen saturation Oxygen saturation in Arterial blood by Pulse oximetry Body temperature Systolic blood pressure Diastolic blood pressure Provider Name and Address Organization Details Last Updated DateTime 2 173.99 cm 29.2 kg/m2 96592.5 1 g 80 /min 98 % 98 % 98.96 [degF] 113 mm[Hg] 70 mm[Hg] Conchita Solis MA [facility] 2 14:18:31 Date Recorded Body height Body mass index (BMI) Body weight Oxygen saturation Oxygen saturation in Arterial blood by Pulse oximetry Heart rate Body temperature Systolic blood pressure Diastolic blood pressure Provider Name and Address Organization Details Last Updated DateTime 3 173.99 cm 29.6 kg/m2 05301.1 g 98 % 98 % 79 /min 98.2 [degF] 117 mm[Hg] 63 mm[Hg] Delia Cullen MA [facility] 3 14:05:01 Date Recorded Body height Body mass index (BMI) Body weight Heart rate Oxygen saturation Oxygen saturation in Arterial blood by Pulse oximetry Body temperature Systolic blood pressure Diastolic blood pressure Provider Name and Address Organization Details Last Updated DateTime 3 173.99 cm 28.8 kg/m2 20554.7 4 g 66 /min 94 % 94 % 98.2 [degF] 112 mm[Hg] 56 mm[Hg] Denise kraus MA [facility] 3 14:56:59 Date Recorded Body height Body mass index (BMI) Body weight Heart rate Oxygen saturation Oxygen saturation in Arterial blood by Pulse oximetry Body temperature Systolic blood pressure Diastolic blood pressure Provider Name and Address Organization Details Last Updated DateTime 4 173.99 cm 28 kg/m2 60378.0 5 g 65 /min 97 % 97 % 98 [degF] 124 mm[Hg] 66 mm[Hg] Denise kraus MA [facility] 4 13:01:33 Social History Question Answer Notes LastModified by Organizat ion Details LastModified Time Tobacco Smoking Status Current Every Day Smoker Denise Valente MA [facility] 01/12/2021 13:07:17 Do You Have An Advance Directive? No HCP Declined; Does Not Know Who To Choose Information not available 03/15/2015 Is Blood Transfusion Acceptable In An Emergency? Yes It Depends Who It's Coming From [employer] Information not available 03/15/2015 What Is Your Level Of Caffeine Consumption? Moderate 2 Cups Of Coffee Daily; Occasional Tea Information not available 03/10/2024 How Much Tobacco Do You Chew? None Information not available 03/15/2015 What Type Of Diet Are You Following? CARDIAC No Added Salt Information not available 03/10/2024 Which Illicit Or Recreational Drugs Have You Used? None Information not available 03/15/2015 Do You Take Precautions To Prevent Distracted Driving? No Uses Speakerphone On Cell Phone Information not available 03/15/2015 How Often Do You Need To Have Someone Help You When You Read Instructions, Pamphlets, Or Other Written Material From Your Doctor Or Pharmacy? Never Information not available 03/15/2015 Have You Served In The ? Yes Information not available 06/04/2016 Have You Or Anyone In Your Household Had Any Of The Following Symptoms In The Last 14 Days: Sore Throat, Cough, Chills, Body Aches For Unknown Reasons, Shortness Of Breath For Unknown Reasons, Loss Of Smell, Loss Of Taste, Fever At Or Greater Than 100 Degrees Fahrenheit? No [email or web address] Information not available 07/11/2020 Are You Or Anyone In Your Household A Health Care Provider Or Emergency Responder? No [email or web address] Information not available 07/11/2020 To The Best Of Your Knowledge Have You Been In Close Proximity To Any Individual Who Tested Positive For COVID-19? No [email or web address] Information not available 07/11/2020 *AWV ONLY* Are You Presently Prescribed Opioid Medication By PCP Or Specialist? If YES -Provider Assess The Benefit For Other, Non-opioid Pain Therapies Instead, Even If The Patient Does Not Have OUD But Is Possibly At Risk. No [email or web address] Information not available 07/11/2020 Have You Recently Traveled To A COVID-19 High Risk Area Or Gathering In The Last 10 Days? No [email or web address] Information not available 07/11/2020 What Was The Date Of Your Most Recent Tobacco Screening? 03/10/2024 Information not available 03/10/2024 How Many Children Do You Have? 0 Information not available 03/09/2014 What Is Your Current Pack Years? 20-29packye ars [email or web address] Information not available 07/11/2020 Are You Sexually Active? No Information not available 03/15/2015 At What Age Did You Start Smoking Tobacco? 19 Information not available 03/09/2014 Are You Passively Exposed To Smoke? Yes Information not available 03/15/2015 How Much Tobacco Do You Smoke? 2 PPW 1 Pack Every 3 Days Information not available 03/10/2024 Do You Use Sunscreen Routinely? No Information not available 03/15/2015 How Many Years Have You Smoked Tobacco? 49 Information not available 07/17/2019 Sex: Unknown Functional Status Question Answer Note LastModified by Organizat ion Details LastModified Time Do you use any illicit or recreational drugs? No Information not available 01/12/2021 Do you or have you ever used any other forms of tobacco or nicotine? No Information not available 01/12/2021 What is your level of alcohol consumption? None quit drinking in 2007 Information not available 03/09/2014 Do you or have you ever used smokeless tobacco? Never used smokeless tobacco Information not available 06/10/2019 Are you currently employed? No retired as of August 2020 Information not available 01/12/2021 Are you able to walk? YESWOREST Information not available 01/12/2021 Are you able to care for yourself? 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 Never used electronic cigarettes Information not available 06/10/2019 What is your exercise level? Moderate walking every day Information not available 03/10/2024 Mental Status None recorded. Family History Relationship Description Onset Age of this Age Resolved Age Notes LastModified by Organization Details LastModified Time Mother Essential hypertension [email or web address] s Not available 03/09/2014 16:11:50 Father Coronary arterioscler osis [email or web address] s Not available 03/09/2014 16:11:50 Brother Coronary arterioscler osis [email or web address] s Not available 03/09/2014 16:11:50 Brother Essential hypertension [email or web address] s Not available 03/09/2014 16:11:50 Sister Diabetes mellitus [email or web address] s Not available 03/09/2014 16:11:50 Sister Essential hypertension [email or web address] s Not available 03/09/2014 16:11:50 Medical History No medical history recorded. Immunizations Vaccine Type Date Status Note Provider Name and Address Organization Details Recorded Time zoster live 014 completed Laura cortes, [facility] 09/08/2021 09:55:39 Influenza, high-dose, trivalent, PF 018 completed [place], [facility] 10/23/2022 13:58:31 zoster recombinant 018 completed Laura cortes, [facility] 09/08/2021 09:55:39 Td (adult) 014 completed Laura cortes, [facility] 09/08/2021 09:55:39 COVID-19, mRNA, LNP-S, PF, 30 mcg/0.3 mL dose 021 completed [place] Florence [facility] 10/23/2022 13:58:31 COVID-19, mRNA, LNP-S, PF, 30 mcg/0.3 mL dose 021 completed [place] Florence [facility] 10/23/2022 13:58:31 COVID-19, mRNA, LNP-S, PF, 30 mcg/0.3 mL dose 021 completed [place], [facility] 10/23/2022 13:58:31 COVID-19, mRNA, LNP-S, PF, 30 mcg/0.3 mL dose, leyda-sucrose 022 completed [place], [facility] 10/23/2022 14:05:24 Influenza, adjuvanted, quadrivalent, PF 021 completed [place], [facility] 10/23/2022 13:58:31 Tdap 018 completed [place], [facility] 10/23/2022 13:58:31 DTP 014 completed [place], [facility] 10/23/2022 13:58:31 Pneumococcal conjugate PCV 13 017 completed Not Available [facility] 05/16/2019 02:21:37 pneumococcal polysaccharide PPV23 018 completed Not Available [facility] 05/16/2019 02:21:28 Influenza, high-dose, trivalent, PF 018 cancelled patient objection Not Available [facility] 05/16/2019 02:22:14 Influenza, high-dose, quadrivalent, PF 023 completed Alice Lam MD [address] [address], [place], [address], [facility] 03/06/2023 15:27:24 Influenza, high-dose, trivalent, PF 024 completed ALEE Montero, [facility] 03/10/2024 16:17:45 Past Encounters Encounter ID Performer Location Encounter Start Date Encounter Closed Date Diagnosis/Indication Diagnosis SNOMED-CT Code Diagnosis ICD10 Code Diagnosis Note [id number] auto[facility]Comm erce [address] [facility] [place] [address] 07/30/2012 00:00:00 [id number] autoEComm erce [id number] [facility] [place] [address] 08/20/2012 00:00:00 [id number] autoEComm erce [address] [facility] [place] [address] 10/20/2012 00:00:00 [id number] autoEComm erce [address] [facility] [place] [address] 11/25/2012 00:00:00 [id number] autoEComm erce [address] [facility] [place] [address] 02/27/2013 00:00:00 [id number] autoEComm erce [address] [facility] [place] [address] 09/01/2013 00:00:00 [id number] Huber Dalton MD Main Office [address] [address] [place] [address] 03/09/2014 15:55:48 03/09/2014 17:10:41 Essential hypertension 48463279 Hyperlipidemia 28154714 Adult heal th examination 208510671 Fatigue 58768217 Benign pro static hyperplasia with outflow obstruction 786483816 Screening for malignant neoplasm of colon 786099561 Old myocar dial infarction 3210330 10/2012 Tobacco de pendence syndrome 10438245 Patient po st percutaneous transluminal coronary angioplasty 522395309 Stent to circ lesion 12/2012. Occluded RCA did not have PCI. [id number] Huber Dalton MD Main Office [address] [address] [place] [address] 09/06/2014 15:53:55 09/06/2014 16:53:31 Essential hypertension 70554660 Hyperlipidemia 28661602 Screening for malignant neoplasm of colon 893702074 Old myocar dial infarction 9698239 10/2012 Tobacco de pendence syndrome 76144249 [id number] Huber Dalton MD Main Office [address] [address] [place] [address] 03/15/2015 15:18:28 03/15/2015 16:49:29 Adult health examination 816944841 Z00.00 Essential hypertension 75910821 I10 Screening for malignant neoplasm of colon 405477613 Z12.11 Hyperlipidemia 66603228 E78.5 Lesion of scalp 06136487 91 00 L98.9 Tobacco de pendence syndrome 39331424 F17.290 [id number] Huber Dalton MD Main Office [address] [address] [place] [address] 10/25/2015 14:38:30 10/25/2015 15:39:20 Blood in urine 38214493 R31.9 Benign pro static hyperplasia with outflow obstruction 885830770 N40.1 [id number] Huber Daltno MD Main Office [address] [address] [place] [address] 06/04/2016 13:17:14 06/04/2016 14:36:53 Adult health examination 644258283 Z00.00 Hyperlipidemia 46922342 E78.5 Fatigue 26367069 R53.83 Benign pro static hyperplasia with outflow obstruction 763419800 N40.1 Essential hypertension 30550777 I10 Tobacco de pendence syndrome 21334956 F17.290 Administra tion of pneumococcal vaccine 10906099 Z23 Lesion of scalp 82643809 91 00 L98.9 Coronary atherosclerosis 246413065 I25.10 PCI to left Cx lesion 12/2012; LVEF 55% [id number] Huber Dalton MD Main Office [address] [address] 01/06/2018 13:33:37 01/06/2018 14:43:32 Administration of pneumococcal vaccine 69034203 Z23 Hepatitis C screening 41 8172150 Z11.59 Essential hypertension 22400073 I10 Administra tion of diphtheria and tetanus vaccine 97970760 Z23 Adult heal th examination 908670799 Z00.00 Immunization refused 275 305156 Z28.21 Coronary atherosclerosis 682720629 I25.10 PCI to left Cx lesion 12/2012; LVEF 55% Hyperlipidemia 04438161 E78.5 Tobacco de pendence syndrome 55370312 F17.290 Benign pro static hyperplasia with outflow obstruction 712850853 N40.1 Blurring o f visual image 771426530 H53.8 Fatigue 81939721 R53.83 Obesity 683293569 E66.9 Body mass index 30+ - obesity 856904949 Z68.30 [id number] Huber Dalton MD Main Office [address] [address] 05/26/2018 13:34:21 05/26/2018 14:39:41 Prediabetes 465845894 R73.03 Discussed pathophysi ology of Prediabete s /TYpe II DM> Pt. was instructed on low calorie/lo w carb diet and was advised to start exercise activity daily by walking or swimming 30-60 minutes daily/. Retest recommende d every 6-12 months for fasting glucose and A1c. So far, A1c is in prediabeti c range and fasting glucose is completely normal. PT. was not recommende d to test glucose at home. [id number] Maci cabral MD Main Office [address] [address] 07/04/2018 13:21:21 07/04/2018 14:27:09 Pre-surgery evaluation 844704405 Z01.818 not pt is on alpha 1 antagonist Patient is at low risk for cardiopulm onary complicati ons with planned procedure based on comorbidit ies, good exertional tolerance and overall procedure risk. Patient advised to avoid aspirin and NSAIDS for 7 days prior. May proceed to scheduled surgery as planned. NOte pt has new long QT interval, he will be seeing cardiology on 07/15/18 Labs done today Foot pulses absent 95340 3008 R09.89 pt with some claudicati on sx, would check LASHAWN and followup with Dr Dalton as planned Prolonged QT interval 11 6028675 I45.81 not on any new meds, do labs today, followup with cardiology . 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 Patient advised to avoid aspirin and NSAIDS for 7 days prior. but will discuss this with the surgeon. May proceed to scheduled surgery as planned. EKG unchanged. [place] 0.2% Cataract 594573673 H26.9 Essential hypertension 94977349 I10 [id number] Jackson Olivo MD Main Office [address] [facility] [address] [place] [address] 06/10/2019 15:03:27 06/10/2019 16:29:26 Pre-surgery evaluation 758392345 Z01.818 Prolonged QT interval 11 I45.81 pt had normal mag level 3.19 - will recheck *will fwd to card for review of updated ekg with prolonged QT interval, and please respond regarding results/up dated clearance/ recommenda tions - thank you! * Prediabetes 837003112 R7 3.03 a1c of 6.1 back in 1.19 Essential hypertension 34553396 I10 stable, cont meds as dir, cont f/u c card Coronary atherosclerosis 365940750 I25.10 PCI to left Cx lesion 12/2012; LVEF 55% Cataract 677044651 H25.0 12 [id number] Huber Dalton MD Main Office [address] [facility] [place] [address] 07/17/2019 09:07:05 07/17/2019 13:52:43 Aneurysm of thoracic aorta 345211458 I71.2 4.0cm of ascending aorta (CT chest 06/2019) Multiple n odules of lung 372526865 R91.8 Tobacco user 358186833 Z 72.0 Still not motivated to quit in the near team. Plans to quit in September 2019 when his brand of menthol cigarettes are no longer available [id number] Jackson Olivo MD Main Office [address] [facility] [place] [address] 07/11/2020 10:19:37 07/11/2020 11:33:07 Adult health examination 930762087 Z00.00 Essential hypertension 17349308 I10 stable, cont meds as dir, cont f/u c card Hyperlipidemia 19854490 E78.5 Coronary atherosclerosis 713148807 I25.10 PCI to left Cx lesion 12/2012; LVEF 55% - cont f/u c card Tobacco de pendence syndrome 55479757 F17.[address]oker[address] 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 - pending see pulm next month Aneurysm o f thoracic aorta 696903491 I71.2 cont f/u c card Poor visual acuity 09203 8008 H53.8 pt states he does not wish to f/u c his current eye md - encouraged him to go next door Body mass index 25-29 - overweight 949407293 E66.3 Z68.29 Prediabetes 475478856 R7 3.03 a1c of 6.1 back in 2.20 - enc less candy and stop juice Benign pro static hyperplasia with outflow obstruction 266955308 N40.1 cont med, f/u c uro History of polyp of colon 577910181 Z86.010 Nicotine dependence 5629 4008 F17.200 [id number] Alice Lam MD Main Office [address] [facility] [address] [facility] [place] [address] 09/30/2020 10:31:45 09/30/2020 10:59:02 Pre-surgery evaluation 150055307 Z01.818 1. Pre-Surgic al Evaluation /Surgical Clearance for left cataract surgery scheduled for 10/13/20 under local anesthesia . -- Clinical cardiac predictor( s): Thoracic aortic aneurysm, CAD status post PCI in 2012, hypertensi on, heart murmur, hyperlipid emia, tobacco dependence , prediabete s -- Surgical risk level: Low/Modera te -- Functional Status: Moderate -- Revised Cardiac Risk Index (RCRI) for Pre-Operat mumtaz Risk: 1 -- CORDOBA Score: 0.6 % Risk of myocardial infarction or cardiac arrest, intraopera tively or up to 30 days post-op -- Vitals and previous labs reviewed -- Imaging: Not indicated -- EKG: Not indicated -- Labs not indicated -- Informed patient NPO at midnight -- Opthamolog y office ok to cw with ASA use, He is hart to avoid NSAID 7-14 days prior. -- Advised tobacco cessation -- Plan of care discussed with patient. -- Medical clearance: Stable to proceed for procedure. Patient is at low/modera te risk for cardiopulm onary complicati ons with planned procedure based on comorbidit ies, good exertional tolerance and overall procedure risk. Cataract 403481735 H26.9 Scheduled for surgery 10/13/20 Ulcer of palate 38805183 4 K12.1 A lesion was noted on hard palate on exam, patient notes to possible injury 3 yrs ago where he was chewing on a bone and cut the roof of mouth and has not healed properly since as it still bleeds from time to time.Given that he is still a smoker will refer to ent for further eval as the lesion is suspicious .He has also not seen dentist in 5 year and I advised him to call. [id number] Jamshid Aguilera PA-C Main Office [address] [facility] [address] [facility] [place] [address] 12/14/2020 15:37:36 12/14/2020 16:39:47 Coronary atherosclerosis 829453438 I25.10 PCI to left Cx lesion 12/2012; LVEF 55% - cont f/u c card Essential hypertension 99452413 I10 stable / low side of normal but pt is asymptomat ic, cont meds as dir, cont f/u c card Prediabetes 627273383 R7 3.03 a1c 6.2 - enc less candy and stop juice Tobacco de pendence syndrome 66461482 F17.[address]oker[address] 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 - pending see pulm 11.21 Ulcer of palate 83218353 4 K12.1 Pre-surger y evaluation 129988684 Z01.818 [id number] Jackson Olivo MD Main Office [address] [facility] [address] [facility] [place] [address] 01/12/2021 12:53:22 01/12/2021 13:45:47 Essential hypertension 15859968 I10 stable bp, cont meds as dir, cont f/u c card, check bmp Aneurysm o f thoracic aorta 849856648 I71.2 cont f/u c card Prediabetes 488158623 R7 3.03 a1c 6.2 - enc less candy and stop juice Benign pro static hyperplasia with outflow obstruction 429123230 N40.1 cont med, f/u c uro Ulcer of palate 69726551 4 K12.1 s/p surgery - cont f/u c ENT [id number] Alice Lam MD Main Office [address] [facility] [address] [facility] [place] [address] 07/17/2021 13:32:31 07/17/2021 14:47:01 Adult health examination 083759987 Z00.00 Patient was counseled on healthy diet, exercise and nutrition due to Body mass index is 30 kg/m . Last PSADate: 08/29/20Resu lt: 3.2Plan: ordered Last Colonoscop y:Date:Res ult:Plan:d ue referral placed. Vaccines:T d: 03/29/14Zos ter: 02/10/18, advised to get second dose, [id number]: 06/04/16PPSV 23: 01/06/18Inf luenza: Not in season.Cov id: 07/27/20, 08/20/20, 02/27/21 Routine labs today Immunizati on status reviewed. Will screen based on risk factors. Regular dental and ophtho care advised as well as seat belt and sunscreen use. Distracted driving discussed. Medication reconciled . Advance directives discussed. Aneurysm o f thoracic aorta 552993855 I71.2 per note on 01/12/21 pt is following card. Essential hypertension 55473588 I10 stable bp, cont meds as dir, cont f/u c card, check bmp Prediabetes 579489423 R7 3.03 a1c 6.2 - enc less candy and stop juice Benign pro static hyperplasia with outflow obstruction 645169595 N40.1 cont med, f/u c uro Ulcer of palate 57405520 4 K12.1 s/p surgery - cont f/u c ENT Fatigue 55814794 R53.83 Hyperlipidemia 06218954 E78.5 Screening for malignant neoplasm of colon 854694432 Z12.11 Nicotine dependence 5629 4008 F17.200 had discussion , declined therapy at this time.Risk of smoking discussed. Had AAA screening 2020Has CT chest by pulm scheduled for 08/11/21 Body mass index 30+ - obesity 363201325 Z68.30 - Diet and exercise discussed- Patient made aware of risks of obesity- Encouraged to loose weight. Goal set to loose weight at 1-1.5 Lbs/week- Avoid starchy and fatty food- Encouraged use of green vegetables and fruits Obesity 660854017 E66.9 Memory impairment 405706 006 R41.3 See 6-cit. Will get labs, re-eval next visti and [id number] Alice Lam MD Main Office [address] [place] [address] 09/01/2021 13:37:28 09/01/2021 14:44:55 Aneurysm of thoracic aorta 991665131 I71.2 per note on 01/12/21 pt is following card. Nicotine dependence 5629 4008 F17.200 had discussion , declined therapy at this time.Risk of smoking discussed. Had AAA screening CT chest by pulm scheduled for 08/11/21 Prediabetes 303529214 R7 3.03 a1c 6.2 - enc less candy and stop juiceRepea t blood work in Nov Essential hypertension 22433620 I10 stable bp, cont meds as dir, cont f/u c card, check bmp [id number] Alice Lam MD Main Office [address] [facility] [address] [facility] [place] [address] 10/23/2022 13:43:21 10/23/2022 14:52:11 Adult health examination 447104841 Z00.00 UTD on vaccines. Coronary atherosclerosis 685878786 I25.10 Patient is still smoking. Resources given F/u with Dr. Mar Essential hypertension 60893703 I10 stable on current medication s. Tobacco de pendence syndrome 60483300 F17.200 Smoker since age 16. 1/2 pack per year. Not ready to quit. Benign pro static hyperplasia with outflow obstruction 300498567 N40.1 Stable - cont meds and f/u w urology Hyperlipidemia 24760252 E78.5 Cont statin therapy - will recheck labs Prediabetes 579637224 R7 3.03 Advised pt to continue low fat diet and limit amount of carbs. Increase exercise. A1c was 6.1%. repeat in 6 m. Posttrauma tic stress disorder 50897339 F43.10 recommend to see psych Benign pro static hyperplasia 605961312 N40.0 Pt. reports 1 year ago surgery was discussed with Dr. Patino, but office never reached out to pt. Pulmonary emphysema 8743 3001 J43.9 Advised pt to stop smoking. Moderate r ecurrent major depression 64093957 F33.1 PHQ score is 13, pt. is interested i therpay , but declines medication s. Recommend to see psych for management of depression , PTSD and anxiety. [id number] Alice Lam MD Main Office [address] [facility] [address] [facility] [place] [address] 03/06/2023 14:46:04 03/06/2023 15:33:12 Moderate recurrent major depression 24194928 F33.1 Decline meds advised [facility].No thoughts of self harm or harming others. Essential hypertension 07440729 I10 stable bp, cont meds as dir, cont f/u c card, check bmp Influenza vaccine needed 5098914651 106 Z23 Screening for malignant neoplasm of lung 156051218 Z87.891 Eligible patients must have >=20 pack years Tobacco de pendence syndrome 16515858 F17.200 Smoking cessation discussed. [id number] Alice Lam MD Main Office [address] [facility] [address] [facility] [place] [address] 08/07/2023 14:43:16 08/07/2023 15:24:08 Essential hypertension 02623340 I10 stable bp, cont meds as dir, cont f/u c card Coronary atherosclerosis 146027142 I25.10 Follows cards Moderate r ecurrent major depression 93682604 F33.1 Decline meds he [facility] psychDecli adnreina thoughts of self harm or harming others. Pulmonary emphysema 8743 3001 J43.9 Stable without needs of inhaler. Tobacco de pendence syndrome 52058536 F17.200 Smoking cessation discussed. No motivation to quite at this time. Benign pro static hyperplasia with outflow obstruction 210729735 N40.1 cont med, f/u c uroPt. reports 1 year ago surgery was discussed with Dr. Zuleta, but office never reached out to pt. encourage to do so due to elevated PSA and hx of hematuria in setting of smoking. Abdominal aortic aneurysm 545907476 I71.40 Will repeat sonogram for interval follow up. Aneurysm o f thoracic aorta 685924363 I71.20 Intermitte nt claudication 60625565 I73.9 Has some pain in legs while walking, is a heavy smoker will check lashawn/pvr.Ad vised to continue to ambulate continue asprin. [id number] Alice Lam MD Main Office [address] [facility] [address] [facility] [place] [address] 03/10/2024 12:34:36 03/10/2024 13:58:07 Adult health examination 144214251 Z00.00 Patient was counseled on healthy diet, exercise and nutrition due to Body mass index is 28 kg/m . Last PSADate: 03/06/23Res ult: 4.3Plan: Follows urology Last Colonoscop y:Date: 07/12/15Res ult: Hyperplast ic polyp less than 10mmPlan: low risk in rectum repeat 10 yrs per guideline Vaccines:T d: 02/10/18Zo ster: 02/10/18, advised to get second dose, [id number]: 06/04/16PPSV 23: 01/06/18PCV 20: Discussed. Influenza: 03/10/24Co vid: encouraged updated vaccineRSV : Discussed. Routine labs today Immunizati on status reviewed. Will screen based on risk factors. Regular dental and ophtho care advised as well as seat belt and sunscreen use. Distracted driving discussed. Medication reconciled . Advance directives discussed. Aneurysm o f thoracic aorta 518266313 I71.20 Will refer to vascular due to poor compliance .Has been taking metoprolol from cards, will add 25mg. Essential hypertension 97499681 I10 stable bp, cont meds as dir, cont f/u c card, check bmp Prediabetes 841961563 R7 3.03 a1c 6.2 - enc less candy and stop juice Benign pro static hyperplasia with outflow obstruction 051843742 N40.1 cont med, f/u c uro Ulcer of palate 16043369 4 K12.1 s/p surgery - cont f/u c ENT Fatigue 14131852 R53.83 Hyperlipidemia 73624547 E78.5 Nicotine dependence 5629 4008 F17.200 had discussion , declined therapy at this time.Risk of smoking discussed. Had AAA screening 11/11/23Wil l refer to vascular. LDCT:Date: 08/01/23Resu lt: Lung Rad-2Plan: Repeat next year. Smoking cessation discussed. Obesity 262569417 E66.9 Body mass index 30+ - obesity 771283189 Z68.30 - Diet and exercise discussed- Patient made aware of risks of obesity- Encouraged to loose weight. Goal set to loose weight at 1-1.5 Lbs/week- Avoid starchy and fatty food- Encouraged use of green vegetables and fruits Influenza vaccine needed 5396857058 106 Z23 65 YEARS AND OLDER Peripheral vascular disease 388790849 I73.9 I71.40 Advance di rective discussed with patient 822549166 Z71.89 MOLST and HCP stands. Weight loss 20041919 R63 .4 Notes to cange in diet.Will monitor in 6mo.Denies , nigth sweat, fever, chills, black tarry stools, urinary sx. Health Concerns Section Related Observation LastModified by Organization Detai ls LastModified Time None Recorded Concern Status LastModified by Organization Details LastModified Time None Recorded Advance Directives Directive N: HCP declined; does not kn ow who to choose Payers Insurance Date Sequence Insurance Name Policy Number Policy Kim Covered Member ID Kim Member ID Guarantor Name 08/12/[address] [facility] (MEDICARE REPLACEMENT/ ADVANTAGE - HMO) [id number] Raúl Lopez [id number] Raúl Lopez 08/12/[address] [facility] (MEDICARE REPLACEMENT/ ADVANTAGE - PPO) [id number] Raúl Lopez [id number] Raúl Lopez 03/10/2024 1 [place] [id number] Raúl Lopez Jr [id number] Raúl Lopez 03/10/2024 1 [place] [employer] Raúl Lopez Jr [id number] Raúl Lopez 03/10/2024 1 [place] [id number] Raúl Lopez Jr [id number] Raúl Lopez Notes Date Note Type Note Provider Name and Address Organization Details Recorded Time 2 text/html DementiaReported bypatient.Notes:Passed repeat testing, likely related to communication barrier.Hip(s)Reported bypatient.Notes:Resolved .HyperlipidemiaReported bypatient.Notes:Followin g cardiology change to CrestorHypertension F/UReported bypatient.Associated Symptoms:no dizziness; no lightheadedness; no chest pain; no shortness of breath; no palpitations; no edema; no calf pain with exertion Lifestyle:regular exercise; exercises 7 times/week; exercises for 15 minutes/day; limiting/avoiding salt Medications:taking medications as directed; no side effects from medicationNotes:Bp stable with change in regimen. Follows Dr. Zaid Lam MD [address] [address], [place], [address], [facility] 09/01/2021 14:35:56 3 text/html Coronary Artery Disease F/UReported bypatient.Severity:sympt oms are improving; no chest discomfort with daily activities Context:smoker Associated Symptoms:no chest pain; no neck pain; no left arm painNotes:Stable CAD after PCI. Continues to smoke cigarettes.Hypertension F/UReported bypatient.Associated Symptoms:no dizziness; no lightheadedness; no chest pain; no shortness of breath; no palpitations; no edema; no calf pain with exertion Lifestyle:limiting/avoid ing salt;not exercising regularly Medications:taking medications as directed; no side effects from medicationNotes:Reports good medication adherence with no side effects.Medicare Annual Wellness VisitReported bypatient.Diet and Nutrition:healthy diet Fracture Risk:no history of fractures Physical Activity:exercises on a regular basis; discussed weightbearing activities Depression Risk:See phq Orientation:no disorientation to time Concentration and Memory:no decreased concentrating ability Speech/Motor difficulties:no speech difficulties Hearing:no loss of hearing Activities of Daily Living:able to bathe with limited or no assistance; able to contol urination and bowels; able to dress with limited or no assistance; able to feed self with limited or no assistance; able to get out of chair or bed with limited or no assistance; able to groom with limited or no assistance; able to toilet with limited or no assistance Instrumental Activities of Daily Living:able to do house work with limited or no assistance; able to grocery shop with limited or no assistance; able to manage medications with limited or no assistance; able to manage money with limited or no assistance; able to prepare meals with limited or no assistance; able to use the phone with limited or no assistance Falls Risk Assessment:no dizziness/vertigo Home Safety:no unsafe stairs; working smoke/CO detectors; use of seatbelts; good lighting in the homeUrinary FrequencyReported bypatient.Quality:sympto ms worse in the evening Severity:moderate Associated Symptoms:no abdominal pain; no back pain; no chills; no constipation; no diarrhea; no feelings of urgencyNotes:Followed by Dr. Bronson for BPH and hematuria workup. 72 y.o. male present for well adult visitFollowing pulm for emphysema and pulmonary nodules.Is using ASADrug use: deniesEtoh use: no longer drinkingtobacco use: present smoker 1/2 pack, since age 16.Dental: due, advised follow upEye: follows yearly, up to dateDiet: low sodium.Activity: minimumColonoscopy: 2016 with 10 year recall Ashley Aguilera PA-C [address] [address], [place], [place], [id number], [facility] 10/23/2022 17:06:23 3 text/html Hypertension F/UReported bypatient.Associated Symptoms:no dizziness; no lightheadedness; no chest pain; no shortness of breath; no palpitations; no edema; no calf pain with exertion Lifestyle:limiting/avoid ing salt;not exercising regularly Medications:taking medications as directed; no side effects from [facility]Ret[facility] Smoking CessationReported bypatient.Duration:54 years Timing:daily Quality:0.5 cigarettes/day Context:tobacco in house/car/work; due to habit/routine; has recieved Pneumococcal Vaccine Associated Symptoms:no weight loss; no fever/chills/sweats; no fatigue; no hoarseness or change in voice; no throat pain; no pain or difficulty swallowing; no cough; no hemoptysis; no septum or phlegm; no wheezing; no shortness of breath; no chest pain; no heartburn/indigestion unrelated to eating; no heart palpitations or missed beats; no swelling in ankles/feet Why treatment was stopped:doesnt like it Contraindications to taking NRT:none Caution to taking NRTnone Reviewed interest for smoking cessation. Alice Lam MD [address] [address], [place], [id number], [facility] 03/06/2023 15:27:50 4 text/html Hypertension F/UReported bypatient.Associated Symptoms:no dizziness; no lightheadedness; no chest pain; no shortness of breath; no palpitations; no edema; no calf pain with exertion Lifestyle:limiting/avoid ing salt;not exercising regularly Medications:taking medications as directed; no side effects from medicationRetail Clinic Smoking CessationReported bypatient.Duration:55 years Timing:daily Quality:0.5 cigarettes/day Context:tobacco in house/car/work; due to habit/routine; has recieved Pneumococcal Vaccine Associated Symptoms:no weight loss; no fever/chills/sweats; no fatigue; no hoarseness or change in voice; no throat pain; no pain or difficulty swallowing; no cough; no hemoptysis; no septum or phlegm; no wheezing; no shortness of breath; no chest pain; no heartburn/indigestion unrelated to eating; no heart palpitations or missed beats; no swelling in ankles/feet Why treatment was stopped:doesnt like it Contraindications to taking NRT:none Caution to taking NRTnone Follow up for bp and smokingReviewed interest for smoking cessation. Alice Lam MD [address], [id number], [facility] 08/07/2023 15:28:25 4 text/html Coronary Artery Disease F/UReported bypatient.Severity:sympt oms are improving; no chest discomfort with daily activities Context:smoker Associated Symptoms:no chest pain; no neck pain; no left arm painNotes:Stable CAD after PCI. Continues to smoke cigarettes.Hypertension F/UReported bypatient.Associated Symptoms:no dizziness; no lightheadedness; no chest pain; no shortness of breath; no palpitations; no edema; no calf pain with exertion Lifestyle:limiting/avoid ing salt;not exercising regularly Medications:taking medications as directed; no side effects from medicationNotes:Reports good medication adherence.Medicare Annual Wellness VisitReported bypatient.Diet and Nutrition:healthy diet Fracture Risk:no history of fractures Physical Activity:exercises on a regular basis; discussed weightbearing activities Depression Risk:See phq Orientation:no disorientation to time Concentration and Memory:no decreased concentrating ability Speech/Motor difficulties:no speech difficulties Hearing:no loss of hearing Vision:blurred vision(intermittent, follow ophtho) Activities of Daily Living:able to bathe with limited or no assistance; able to contol urination and bowels; able to dress with limited or no assistance; able to feed self with limited or no assistance; able to get out of chair or bed with limited or no assistance; able to groom with limited or no assistance; able to toilet with limited or no assistance Instrumental Activities of Daily Living:able to do house work with limited or no assistance; able to grocery shop with limited or no assistance; able to manage medications with limited or no assistance; able to manage money with limited or no assistance; able to prepare meals with limited or no assistance; able to use the phone with limited or no assistance Falls Risk Assessment:no dizziness/vertigo Home Safety:reviewed sun protection; no unsafe stairs; working smoke/CO detectors; use of seatbelts; good lighting in the homeUrinary FrequencyReported bypatient.Quality:sympto ms worse in the evening Severity:moderate Associated Symptoms:no abdominal pain; no back pain; no chills; no constipation; no diarrhea; no feelings of urgencyNotes:Followed by Dr. Bronson for BPH and hematuria workup. Here for wellness visit. Reviewed chronic medications and medical problems. Discussed screening guidelines as well as goals for fitness and weight management. Alice Lam MD [address], [id number], [facility] 03/10/2024 13:46:27
== END 2024-10-20 14:11 | disposition home or self-care (01) ==
LOC: HO.US 14:10
PROVIDERS: PCP Family Medicine; Visit Provider Surgery Vascular Surgery
DX: I73.9 Peripheral vascular disease, unspecified (principal); R94.39 Abnormal result of other cardiovascular function study; Z13.6 Encounter for screening for cardiovascular disorders
CPT/HCPCS: 76706; 93922; 93925

== ENCOUNTER → 2024-10-20 14:18 | Outpatient (BNV) | payer MEDICARE, SELFPAY | PROVIDERS: PCP Family Medicine; Visit Provider Radiology Diagnostic Radiology | DX: I73.9 Peripheral vascular disease, unspecified (principal); I77.72 Dissection of iliac artery; R14.0 Abdominal distension (gaseous) | CPT/HCPCS: 76706; 93922; 93925 ==

== ENCOUNTER 2024-11-03 13:34 | Outpatient (AMB) | payer MEDICARE, SELFPAY ==
--- NOTE | 2024-11-03 13:41 | A.OFFVIS_ITS ---
Intake Visit Reasons: 6m follow up s/p Arterial US 10/20/24 Intake Note: Patient presents for arterial US performed on 10/20/24. Patient states his legs get tired. No other complaints. Accompanied by: Self / Same As Patient Allergies No Known Allergies Allergy (Verified 11/03/24 13:42) HPI HPI 6m follow up s/p Arterial US 10/20/24: Details: The patient is a 74-year-old male presenting for arterial follow-up. He reports being able to walk 3 to 4 blocks easily without problems, although his legs become tired after walking about 200 meters if he has not been active for a few days. The patient has a history of peripheral artery disease with complaints right more so than left. He has undergone prior imaging in September 2023 at [facility] and most recently in September 2024, which showed similar results. The patient also reports shoulder pain, which he attributes to a past injury where he might have pulled a joint, but he has not sought medical attention for it. He now presents for vascular follow-up with arterial testing. Review of Systems Const All systems reviewed & are unremarkable except as noted in HPI and below Reports no additional complaints ENT Reports Normal hearing present Card Denies chest pain, Denies chest pain at rest, Denies chest pain with activity and Denies pedal edema Resp Denies cough GI Denies abdominal pain Musc Denies abnormal gait, Denies muscle cramps and Denies radiating pain into limb Skin/Breast Denies skin ulcer and Denies wounds Neuro Reports Normal hearing present and Denies abnormal gait Psych Reports no additional complaints Physical Exam Const General: cooperative, healthy appearing and comfortable Orientation/consciousness: oriented to person, oriented to place and oriented to time HEENT Head: Yes normal to inspection Neck Neck: Yes normal visual inspection Carotids: no bruits Chest Chest palpation & inspection: normal inspection of the chest Resp Effort & Inspection: normal respiratory effort and able to speak in complete sentences Auscultation: clear to auscultation bilaterally, no crackles, no rales, no rhonchi and no wheezes Cardio Other: Bilateral DP signals Rate: regular rate Rhythm: regular rhythm Heart sounds: S1 normal heart sound present and S2 normal heart sound present Bruits: no carotid bruits GI Inspection: Yes normal to inspection Skin Wounds: no wounds Hair: normal Neuro General: oriented to person, oriented to place and oriented to time Cranial nerves: Yes CN's II-XII intact bilaterally and Yes Normal hearing present Cognition (Neuro): normal cognition Motor exam (neuro): 5/5 motor strength present throughout Extrem Other: venous exam: No significant superficial varicosities or spider telang iectasias, minimal edema General: No clubbing, No cyanosis and No edema Psych Appearance: grossly normal Mental Status: mental status grossly normal Speech and movement: Normal speech and movement present Results Reviewed Results Reviewed: Noninvasive arterial testing dated 10/20/2024 demonstrates ELOISE on the right of 0.42 and on the left of 0.62 written report and images were reviewed. Assessment & Plan Assessment & Plan (1) PAD (peripheral artery disease): Code(s): I73.9 - Peripheral vascular disease, unspecified Category: Medical Plan: In short patient has stable claudication. I did review the pathophysiology of peripheral vascular disease with the patient. In addition we did discuss routine conservative measures including a healthy diet and the importance of exercise and ambulation. We did discuss risk factor modification. The patient will continue to to follow-up with surveillance follow-up in approximately 1 year. Thank you for allowing us to participate in this patient's care. If there are any questions or concerns please do not hesitate to contact us. Plan Patient was informed and verbally consented to the use of an ambient scribe for clinic note documentation during this visit. Orders: Orders US arterial duplex LE BI 1 Year I73.9 - Peripheral vascular disease, unspecified Patient Instructions: - Continue regular walking to improve circulation. - Monitor for any increase in leg pain or discomfort and report if symptoms worsen. - Follow up in one year for an ultrasound unless symptoms change. Coding Level of Care Code Est Pt Level 4 (62186) Complex EM visit Add On G2211 Diagnoses PAD (peripheral artery disease) I73.9
--- OUTSIDE RECORDS SUMMARY | 2024-11-03 14:18 | XMS_ITS | Data Portability ---
Author Organization [facility], Main Office Address [address] [facility] [address] [place] [id number] Care Team Providers Care Tamper Operator Name Role Phone TIMOTEO BRONSON Urologist [phone] CONCHA ONTIVEROS Acquisition Advisor [phone] BRITTANY DEGROOT Apron Trimmer STAS WANG General Internal Medicine Physician [phone] MARBELLA MIX General Internal Medicine Physician CHERRIE SANCHEZ Well Digger [phone] ALICE LAM Primary Care Provider JIMMY SIMPSON Vascular Surgeon Assessment No assessment recorded. Plan of Treatment Reminders Order Date Submit Date Provider Last Modified By Organization Details Last Modified Time Details Appointments None recorde d. Lab HbA1c (hemogl obin A1c), blood 2023 [facility], [address], [place], [address], 4 10:06:37 CBC w/ auto diff 2023 024 [facility], [address], [place], [address], 4 10:06:33 CMP, serum or plasma 2023 024 [facility], [address], [place] [address], [address], 4 10:06:34 TSH, ultra-s ensitiv e, serum 2023 024 MIRIAN [facility] (Centralized Electronic Ordering - All Locations), Patient Can Go To The Location Of Their Choice, [address] 4 10:06:38 magnesi um, serum or plasma 2023 024 [facility], [address], [address], [place], [address], 4 10:06:39 lipid panel, serum 2023 024 [facility], [address], [place], [place], [address], 4 10:06:36 PSA, serum or plasma 2023 024 [facility], [address], [address], [place], [place], [address], 4 10:06:36 BMP, serum or plasma 2022 023 [facility], [address], [place], [address], 3 21:57:21 hemoglo bin A1C, fingers tick 2022 023 In-Office Order, Internal Use Only DO Not Attach Compendium DO Not Attach Compendium, Do Not Delete/merge, [id number] 3 14:41:56 PSA, serum or plasma 2022 023 [facility], [address], [address], [place], [address], 3 21:49:13 Referral vascula r surgeon referra l - smoker poor complia nce for AAA and PAD. On ASA, statin, beta colleen added. 2023 024 guru Simpson, [address] [place] [address] Dr, [address], [place], [address], 4 10:38:50 psychia trist referra l - PTSD 2022 023 guru Not available 3 11:02:[address] referra l - BPH with obstruc tive symptom s. Elevate d PSA 2022 023 guru [facility], [address] [facility], [place], [address], 3 14:02:50 Procedures None recorde d. Surgeries None recorde d. Imaging US, echocar diogram , transth oracic, complet e 2023 024 guru [facility] (Outt Non-Invasive Cardiology Scheduling), [address] [facility], [place], [address], 4 11:20:19 pulse volume recordi ng 2023 024 [email or web address] [facility], [address] [facility], [address], [place], [address], 4 09:17:53 ankle brachia l index, complet e 2023 024 guru [facility], [address] [facility], [address], [place], [address], 4 10:22:17 US, abdomin al aorta 2023 024 [facility] (Ultrasound), [address] [place], [address], 4 14:05:32 LDCT, chest, for lung cancer screeni ng - -The patient does not have lung cancer or signs of lung cancer at this time. -Patien t has not had a chest CT in the last 12 months. *SHARED DECISIO N MAKING* I have discuss ed the benefit s and risks of lung cancer screeni ng in complia nce with [facility] shared decisio n making guideli ehsan includi ng early detecti on, radiati on exposur e, false negativ e rates, false positiv e rates, over-di agnosis , inciden frederic finding s, impact of comorbi dities and the ability or willing ness to undergo diagnos is and treatme nt if somethi ng concern ing is found. I have reviewe d with the patient the importa nce of abstine nce if a former smoker, and importa nce of smoking cessati on if a current smoker. I have furnish ed the patient with informa tion and resourc es availab le to quit smoking if appropr iate. 2022 023 [facility] L[facility] Program, [address] [facility], [place], [address], 13:17:03 Medication Orders metopro lol succina te ER 25 mg tablet, extende d release 24 hr 2023 024 MIRIAN Not available 13:37:46 Patient TargetsNo targets recorded. Patient Instructions Encounter Date Encounter Id Patient Instructions Last Modified By Organization Details Last Modified Time 10/23/2022 [id number] Quitting Tobacco : Care Instructions Not available [...] care instructions Not available 10/23/2022 14:42:46 03/06/2023 [id number] learning about lung cancer screening [email or web address] Not available 03/06/2023 15:21:32 08/07/2023 [id number] deciding about using medicines to quit smoking [...] pressure ckokar Not available 08/07/2023 15:24:34 03/10/2024 [id number] Peripheral Arterial Disease (PAD): Care Instructions ckokar [...] of Clini lisa and Appli ed [facility] and Educa tion Volum e 43, [...] TEST PERFO RMED USING THE NORAH ELECT [employer] [facility] CENCE TOTAL PSA ASSAY . PSA VALUE [...] Go To The Location Of Their Choice, [address] 08/29/2021 08:59:42 08/29/1908/29/2021 SYPHI LIS TESTI NG [...] DO Not Attach Compendium, Do Not Delete/merge, [id number] 10/23/2022 14:37:32 03/06/20 23 03/06/2023 PSA SCREE [...] Go To The Location Of Their Choice, [id number] 03/06/2023 21:57:21 03/06/2003/06/2023 BASIC METAB OLIC PANEL sodium 141 mmol/ L (133-1 45) Not Available [facility] (Centralized Electronic Ordering - All Locations) Patient Can Go To The Location Of Their Choice, [address] 03/06/2023 21:57:21 03/06/2003/06/2023 BASIC METAB OLIC PANEL potassium 4.4 mmol/ L (3.6-5 .2) Not Available [facility] (Centralized Electronic Ordering - All Locations) Patient Can Go To The Location Of Their Choice, [id number] 03/06/2023 21:57:21 03/06/2003/06/2023 BASIC METAB OLIC PANEL chloride 101 mmol/ L (98-10 7) Not Available [facility] (Centralized Electronic Ordering - All Locations) Patient Can Go To The Location Of Their Choice, [address] 03/06/2023 21:57:21 03/06/2003/06/2023 BASIC METAB OLIC PANEL bicarbonate 31 mmol/ L (22-29 ) high Not Available [facility] (Centralized Electronic Ordering - All Locations) Patient Can Go To The Location Of Their Choice, [address] 03/06/2023 21:57:21 03/06/2003/06/2023 BASIC METAB OLIC PANEL anion gap 9 (4-17) Not Available [facility] (Centralized Electronic Ordering - All Locations) Patient Can Go To The Location Of Their Choice, [address] 03/06/2023 21:57:21 03/06/2003/06/2023 BASIC METAB OLIC PANEL calcium 9.5 mg/dL (8.6-1 0.5) Not Available [facility] (Centralized Electronic Ordering - All Locations) Patient Can Go To The Location Of Their Choice, [address] 03/06/2023 21:57:21 03/06/2003/06/2023 BASIC METAB OLIC PANEL [...] Go To The Location Of Their Choice, [address] 03/06/2023 21:57:21 03/17/2003/18/2024 CBC WITH DIFFE RENTI AL/PL ATELE T WBC 9.0 x10e3 /uL 3.4-10 .8 normal Eff ectiv e Decem mellissa 2023 profi radha 10589 5 WBC will be made* * non-o rdera ble as a stand -jina e order code. Not Available [facility] ([facility]) [address] [place], [address], 03/18/2024 10:06:33 03/17/20 24 03/18/2024 CBC WITH DIFFE RENTI AL/PL ATELE T RBC 5.55 x10e6 /uL 4.14-5 .80 normal Not Available [facility] ([facility]) [address] [place], [address], 03/18/2024 10:06:33 03/17/20 24 03/18/2024 CBC WITH DIFFE RENTI AL/PL ATELE T hemoglobin 15.3 g/dL 13.0-1 7.7 normal Not Available [facility] ([facility]) [address] [place], [address], 03/18/2024 10:06:33 03/17/20 24 03/18/2024 CBC WITH DIFFE RENTI AL/PL ATELE T hematocrit 48.6 % 37.5-5 1.0 normal Not Available [facility] ([facility]) [address] [place], [address], 03/18/2024 10:06:33 03/17/20 24 03/18/2024 CBC WITH DIFFE RENTI AL/PL ATELE T MCV 88 fL 79-97 normal Not Available [facility] ([facility]) [address] [place], [address], 03/18/2024 10:06:33 03/17/20 24 03/18/2024 CBC WITH DIFFE RENTI AL/PL ATELE T MCH 27.6 pg 26.6-3 3.0 normal Not Available [facility] ([facility]) [address] [place], [address], 03/18/2024 10:06:33 03/17/20 24 03/18/2024 CBC WITH DIFFE RENTI AL/PL ATELE T MCHC 31.5 g/dL 31.5-3 5.7 normal Not Available [facility] ([facility]) [address] [place], [address], 03/18/2024 10:06:33 03/17/20 24 03/18/2024 CBC WITH DIFFE RENTI AL/PL ATELE T RDW 14.0 % 11.6-1 5.4 Not Available [facility] ([facility]) [address] [place], [address], 03/18/2024 10:06:33 03/17/20 24 03/18/2024 CBC WITH DIFFE RENTI AL/PL ATELE T platelets 267 x10e3 /uL 150-45 0 normal Not Available [facility] ([facility]) [address] [place], [address], 03/18/2024 10:06:33 03/17/20 24 03/18/2024 CBC WITH DIFFE RENTI AL/PL ATELE T neutrophils 61 % not estab. normal Not Available [facility] ([facility]) [address] [place], [address], 03/18/2024 10:06:33 03/17/20 24 03/18/2024 CBC WITH DIFFE RENTI AL/PL ATELE T lymphs 26 % not estab. normal Not Available [facility] ([facility]) [address] [place], [address], 03/18/2024 10:06:33 03/17/20 24 03/18/2024 CBC WITH DIFFE RENTI AL/PL ATELE T monocytes 11 % not estab. normal Not Available [facility] ([facility]) [address] [facility], [place], [address], 03/18/2024 10:06:33 03/17/20 24 03/18/2024 CBC WITH DIFFE RENTI AL/PL ATELE T eos 2 % not estab. normal Not Available [facility] ([facility]) [address] [place], [address], 03/18/2024 10:06:33 03/17/20 24 03/18/2024 CBC WITH DIFFE RENTI AL/PL ATELE T basos 0 % not estab. normal Not Available [facility] ([facility]) [address] [place], [address], 03/18/2024 10:06:33 03/17/20 24 03/18/2024 CBC WITH DIFFE RENTI AL/PL ATELE T immature cells ASSISTANT TEACHING PROFESSOR Not Available [facility] ([facility]) [address] [place], [address], 03/18/2024 10:06:33 03/17/20 24 03/18/2024 CBC WITH DIFFE RENTI AL/PL ATELE T neutrophils (absolute) 5.4 x10e3 /uL 1.4-7. 0 normal Not Available [facility] ([facility]) [address] [place], [address], 03/18/2024 10:06:33 03/17/20 24 03/18/2024 CBC WITH DIFFE RENTI AL/PL ATELE T lymphs (absolute) 2.3 x10e3 /uL 0.7-3. 1 normal Not Available [facility] ([facility]) [address] [place], [address], 03/18/2024 10:06:33 03/17/20 24 03/18/2024 CBC WITH DIFFE RENTI AL/PL ATELE T monocytes(ab solute) 1.0 x10e3 /uL 0.1-0. 9 above high normal Not Available [facility] ([facility]) [address] [facility], [place], [address], 03/18/2024 10:06:33 03/17/20 24 03/18/2024 CBC WITH DIFFE RENTI AL/PL ATELE T eos (absolute) 0.2 x10e3 /uL 0.0-0. 4 normal Not Available [facility] ([facility]) [address] [place], [address], 03/18/2024 10:06:33 03/17/20 24 03/18/2024 CBC WITH DIFFE RENTI AL/PL ATELE T baso (absolute) 0.0 x10e3 /uL 0.0-0. 2 normal Not Available [facility] ([facility]) [address] [facility], [place], [address], 03/18/2024 10:06:33 03/17/20 24 03/18/2024 CBC WITH DIFFE RENTI AL/PL ATELE T immature granulocytes 0 % not estab. Not Available [facility] ([facility]) [address] [place], [address], 03/18/2024 10:06:33 03/17/20 24 03/18/2024 CBC WITH DIFFE RENTI AL/PL ATELE T immature grans (abs) 0.0 x10e3 /uL 0.0-0. 1 Not Available [facility] ([facility]) [address] [place], [address], 03/18/2024 10:06:33 03/17/20 24 03/18/2024 CBC WITH DIFFE RENTI AL/PL ATELE T NRBC ASSISTANT TEACHING PROFESSOR Not Available [facility] ([facility]) [address] [place], [address], 03/18/2024 10:06:33 03/17/20 24 03/18/2024 CBC WITH DIFFE MARCEL AL/JOSE Rao hematology comments: ASSISTANT TEACHING PROFESSOR Not Available [facility] ([facility]) [address] [facility], [place], [address], 03/18/2024 10:06:33 03/17/20 24 03/18/2024 COMP. METAB OLIC PANEL (14) glucose 94 mg/dL 70-99 normal Not Available [facility] ([facility]) [address] [facility], [place], [address], 03/18/2024 10:06:34 03/17/20 24 03/18/2024 COMP. METAB OLIC PANEL (14) BUN 19 mg/dL 8-27 normal Not Available [facility] ([facility]) [address] [facility], [place], [address], 03/18/2024 10:06:34 03/17/20 24 03/18/2024 COMP. METAB OLIC PANEL (14) creatinine 0.93 mg/dL 0.76-1 .27 normal Not Available [facility] ([facility]) [address] [facility], [place], [address], 03/18/2024 10:06:34 03/17/20 24 03/18/2024 COMP. METAB OLIC PANEL (14) eGFR 87 mL/mi n/1.7 3 >59 normal Not Available [facility] ([facility]) [address] [facility], [place], [address], 03/18/2024 10:06:34 03/17/20 24 03/18/2024 COMP. METAB OLIC PANEL (14) BUN/creatini ne ratio 20 10-24 normal Not Available [facility] ([facility]) [address] [facility], [place], [address], 03/18/2024 10:06:34 03/17/20 24 03/18/2024 COMP. METAB OLIC PANEL (14) sodium 143 mmol/ L 134-14 4 normal Not Available [facility] ([facility]) [address] [facility] [place], [address], 03/18/2024 10:06:34 03/17/20 24 03/18/2024 COMP. METAB OLIC PANEL (14) potassium 4.9 mmol/ L 3.5-5. 2 normal Not Available [facility] ([facility]) [address] [facility] [place], [address], 03/18/2024 10:06:34 03/17/20 24 03/18/2024 COMP. METAB OLIC PANEL (14) chloride 103 mmol/ L 96-106 normal Not Available [facility] ([facility]) [address] [facility], [place], [address], 03/18/2024 10:06:34 03/17/20 24 03/18/2024 COMP. METAB OLIC PANEL (14) carbon dioxide, total 26 mmol/ L 20-29 normal Not Available [facility] ([facility]) [address] [facility] [place], [address], 03/18/2024 10:06:34 03/17/20 24 03/18/2024 COMP. METAB OLIC PANEL (14) calcium 9.2 mg/dL 8.6-10 .2 normal Not Available [facility] ([facility]) [address] [place], [address], 03/18/2024 10:06:34 03/17/20 24 03/18/2024 COMP. METAB OLIC PANEL (14) protein, total 7.4 g/dL 6.0-8. 5 normal Not Available [facility] ([facility]) [address] [place], [address], 03/18/2024 10:06:34 03/17/20 24 03/18/2024 COMP. METAB OLIC PANEL (14) albumin 4.3 g/dL 3.8-4. 8 normal Not Available [facility] ([facility]) [address] [facility] [place], [address], 03/18/2024 10:06:34 03/17/20 24 03/18/2024 COMP. METAB OLIC PANEL (14) globulin, total 3.1 g/dL 1.5-4. 5 Not Available [facility] ([facility]) [address] [facility] [place], [address], 03/18/2024 10:06:34 03/17/20 24 03/18/2024 COMP. METAB OLIC PANEL (14) bilirubin, total 0.2 mg/dL 0.0-1. 2 normal Not Available [facility] ([facility]) [address] [facility] [place], [address], 03/18/2024 10:06:34 03/17/20 24 03/18/2024 COMP. METAB OLIC PANEL (14) alkaline phosphatase 84 IU/L 44-121 normal Not Available [facility] ([facility]) [address] [facility] [place], [address], 03/18/2024 10:06:34 03/17/20 24 03/18/2024 COMP. METAB OLIC PANEL (14) AST (SGOT) 19 IU/L 0-40 normal Not Available [facility] ([facility]) [address] [facility] [place], [address], 03/18/2024 10:06:34 03/17/20 24 03/18/2024 COMP. METAB OLIC PANEL (14) ALT (SGPT) 14 IU/L 0-44 normal Not Available [facility] ([facility]) [address] [facility] [place], [address], 03/18/2024 10:06:34 03/17/20 24 03/18/2024 LIPID PANEL cholesterol, total 142 mg/dL 100-19 9 normal Not Available [facility] ([facility]) [address] [facility], [place], [address], 03/18/2024 10:06:35 03/17/20 24 03/18/2024 LIPID PANEL triglyceride s 56 mg/dL 0-149 normal Not Available [facility] ([facility]) [address] [facility], [place], [address], 03/18/2024 10:06:35 03/17/20 24 03/18/2024 LIPID PANEL HDL cholesterol 53 mg/dL >39 normal Not Available [facility] ([facility]) [address] [facility], [place], [address], 03/18/2024 10:06:35 03/17/20 24 03/18/2024 LIPID PANEL VLDL cholesterol lisa 12 mg/dL 5-40 Not Available [facility] ([facility]) [address] [place], [address], 03/18/2024 10:06:35 03/17/20 24 03/18/2024 LIPID PANEL LDL chol calc ([facility]) 77 mg/dL 0-99 Not Available [facility] ([facility]) [address] [place], [address], 03/18/2024 10:06:35 03/17/20 24 03/18/2024 LIPID PANEL LDL calc comment: ASSISTANT TEACHING PROFESSOR Not Available [facility] ([facility]) [address] [facility], [place], [address], 03/18/2024 10:06:35 03/17/20 24 03/17/2024 PSA TOTAL (REFL EX TO FREE) reflex criteria Commen t The perce nt free PSA is perfo rmed on a refle x basis only when the total PSA is betwe en 4.0 and 10.0 ng/mL . Not Available [facility] ([facility]) [address] [facility], [place], [address], 03/18/2024 10:06:36 03/17/20 24 03/18/2024 PSA TOTAL [...] rosa isela hills se. Not Available [facility] ([facility]) [address] [place], [address], 03/18/2024 10:06:36 03/17/20 24 03/18/2024 PSA TOTAL (REFL EX TO FREE) PSA, free 1.42 NG/mL n/a Norah ECLIA metho dolog y. Not Available [facility] ([facility]) [address] [place], [address], 03/18/2024 10:06:36 03/17/20 24 03/18/2024 PSA TOTAL [...] popul ation of men. Not Available [facility] ([facility]) [address] [facility], [place], [address], 03/18/2024 10:06:36 03/17/20 24 03/18/2024 HEMOG LOBIN A1C hemoglobin A1C 6.2 % 4.8-5. 6 above high normal Predi abete s: 5.7 - 6.4 Diabe ross: >6.4 Glyce pablo contr ol for adult s with diabe ross: <7.0 Not Available [facility] ([facility]) [address] [place], [address], 03/18/2024 10:06:37 03/17/20 24 03/18/2024 TSH RFX ON ABNOR MAL TO FREE T4 TSH 0.743 uIU/m L 0.450- 4.500 normal Not Available [facility] ([facility]) [address] [place], [address], 03/18/2024 10:06:38 03/17/20 24 03/18/2024 MAGNE SIUM magnesium 2.4 mg/dL 1.6-2. 3 above high normal Not Available [facility] ([facility]) [address] [place], [address], 03/18/2024 10:06:39 08/01/19 24 07/31/2023 CT chest ldct progr am follo w up CT Chest LDCT Progra m Follow Up Reason : Other: ; 6 MONTHS F U LDCT LUNG CANCER SCREEN ING PROGRA M CURREN T SMOKER , 32 PACK YEAR HX; Clinic al Questi on(s): Other: ; Specia l Instru ctions : BOOK AT [address] [facility], [place], [place] BOOK AFTER 06 25 2023 Visit [...] nodule s OTHER FINDIN GS: Stable emphys itffany. IMPRES NICK: Nodule (s) with benign appear ance. Lung-R ADS catego ry 2- Benign , 1 year follow up LDCT recomm ended. WSN: [id number] Orderi ng Physic genet: Sunny Lam Dictat ed By: Sandra Salomon MD Dictat ed Date/T lilliana: 1:11 pm Review ed By: Sandra Salomon MD Signed By: Sandra Salomon MD Signed Date/T lilliana: 1:11 pm Transc ribed By: MAGDI Transc ribed Date/T lilliana: 12:58 pm Patien t Class: Outpat ient [email or web address] [facility] (Outpt Imaging) [address] [place], [address], 08/02/2023 17:01:28 08/01/19 24 08/01/2023 LDCT, chest , for lung cance r scree jaimie No observ ation record ed. [facility] [address] [place], [address], 08/02/2023 08:26:17 10/13/19 24 10/11/2023 ankle brach ial index , compl ete No observ ation record ed. [email or web address] [facility] (Pulmonary Lab) [address] [place], [address], 01/15/2024 08:59:38 11/11/19 24 11/11/2023 US, abdom [...] per ACR and SVS guidel janice. WSN: [id number] Orderi ng Physic genet: Sunny Lam Dictat ed By: Sam Ferris MD Dictat ed Date/T lilliana: 2:02 pm Review ed By: Sam Ferris MD Signed By: Sam Ferris MD Signed Date/T lilliana: 2:02 pm Transc ribed By: MAGDI Transc ribed Date/T lilliana: 1:50 pm Patien t Class: Outpat ient [email or web address] [facility] (Outpt Imaging) [address] , [place], [address], 11/20/2023 16:02:43 11/11/19 24 11/11/2023 US, abdom inal aorta No observ ation record ed. [facility] (Ultrasound) [address], [place], [address], 11/12/2023 10:49:49 0408/13/2024 CT chest ldct lung progr am PROCED URE: CT Chest LDCT Lung Progra m INDICA TION: 73 years old Male for lung cancer screen ing. Reason : Other: ; LDCT LUNG CANCER SCREEN ING WAQAS M, VARGHESE T SMOKER , 33 PACK YEAR HX; Specia l Instru ctions : BOOK AT [address] [facility], [facility], [place] BOOK AFTER 07 30 2024 NO CHEST [...] DLP Body: 121 mGy*cm . 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 TRACHE A AND CENTRA L AIRWAY S: Patent withou t eviden ce of trache al or endobr onchia l lesion . LUNGS AND PLEURA : Nodule s (axial series 3): RIGHT LUNG: No signif icant nodule seen. Small scatte red nodule s measur ing up to 3 mm unchan ged LEFT LUN.5 mm solid nodule sr community manager omedia l LEFT lower lobe unchan ged, image 178. New 6.3 nodule sr community manager olater al LEFT upper lobe image 102 since July 31, 2023 but alread y presen t on the exams of 2022. Small scatte red nodule s measur ing up to 3 mm unchan ged. Other lung findin gs: Modera te to severe centri lobula r emphys tiffany with upper lobe predom inance . Mild to modera te depend ent atelec tasis sr community manager iorly in both lower lobes. No eviden [...] the care of this patien t. WSN: [id number] Orderi ng Physic genet: Sunny Lam Dictat ed By: Chang Parikh MD Dictat ed Date/T lilliana: 4:24 pm Review ed By: Chang Parikh MD Signed By: Chang Parikh MD Signed Date/T lilliana: 4:24 pm Transc ribed By: CSB Transc ribed Date/T lilliana: 3:17 pm Patien t Class: Anna spann [email or web address] [facility] (Outpt Imaging) [address], [place], [address], 08/25/2024 11:43:20 08/18/19 25 08/13/2024 LDCT, chest , for lung cance r scree jamiie No observ ation record ed. [facility] [address], [place], [address], 08/17/2024 16:37:49 08/19/19 25 08/17/2024 LDCT, chest , for lung cance r scree jaimie No observ ation record ed. [facility] Lung Cancer Screening Program [address], [place], [address], 08/18/2024 13:53:59 10/22/19 25 10/20/2024 US, duple x, arter ial / arter ial bypas s graft , lower extre mity, compl ete No observ ation record ed. [address] (Medical Records) [address] [place], [address], 10/23/2024 15:51:32 10/22/19 25 10/20/2024 US, duple x, arter ial, lower extre mity No observ ation record ed. [address] (Medical Records) [address] [place], [address], 10/23/2024 15:38:59 Result Notes None recorded. Problems Name Problem SNOMED Code Status Onset Date Resolution Date Notes Provider Name and Address Organization Details Recorded Time Screenin g for malignan t neoplasm of colon Completed 201312/07/2013 RECORDED 09/02/19 14 4:17PM BY TRELL SOLORZANO MA, ANNOTATI ON/ADDEN DUM Not Available [facility] 4 05:25:07 Malaise and fatigue [id number] Completed 201212/07/2013 RECORDED 08/21/19 13 2:42PM BY DENISE CAPUTO MA, ANNOTATI ON/ADDEN DUM Not Available [facility] 4 05:25:07 Laborato ry procedur e performe d [id number] Completed 201212/07/2013 RECORDED 12/20/19 13 9:23AM BY TRELL SOLORZANO MA, ANNOTATI ON/ADDEN DUM Not Available [facility] 4 05:25:07 Immuniza tion refused Completed 201312/07/2013 RECORDED 09/02/19 14 4:17PM BY TRELL SOLORZANO MA, ANNOTATI ON/ADDEN DUM Not Available [facility] 4 05:25:07 Radiolog y result abnormal [id number] Completed 201212/07/2013 RECORDED 09/11/19 13 9:33AM BY TRELL SOLORZANO MA, ANNOTATI ON/ADDEN DUM Not Available [facility] 4 05:25:07 Fatigue [id number] Completed 01/06/2018 Lynsey cortes [facility] 8 13:45:46 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 [id number] Active Not Available [facility] 2 08:40:37 Tobacco dependen ce syndrome 46882724 Active Not Available [facility] 2 08:40:37 Lesion of scalp 80088616693 0 Completed 06/04/2016 ALEE Castle [facility] 7 13:39:26 Blood in urine [id number] Completed 06/04/2016 ALEE Castle [facility] 7 13:39:23 Blurring of visual image 300322981 Active 2017 Not Available [facility] 2 08:40:37 Prediabe ross 541351625 Active 2018 Not Available [facility] 2 08:40:37 History of polyp of colon 706026046 Active 2020 Not Available [facility] 2 08:40:37 Nicotine dependen ce 36389943 Active 2020 Not Available [facility] 2 08:40:37 Tomograp hy - chest abnormal 359650615 Active 2020 Not Available [facility] 2 08:40:37 Ulcer of palate 753581867 Active 2020 Not Available [facility] 2 08:40:37 Posttrau matic stress disorder 29735255 Active 2022 Ashley Aguilera PA-C [address], [place], [address] , [facility] 3 14:30:09 Benign prostati c hyperpla tripp 776884660 Completed 202208/07/2023 Alice Lam MD [address], [place], [address] , [facility] 4 00:23:41 Pulmonar y emphysem a 54599805 Active 2022 Ashley Aguilera PA-C [address], [place], [address] , [facility] 3 14:41:45 Moderate recurren t major depressi on 29069207 Active 2022 Ashley Aguilera PA-C [address], [place], [address] , [facility] 3 17:05:28 Peripher al vascular disease 782875657 Active 2023 Alice Lam MD [address], [place], [address] , [facility] 4 08:57:26 Abdomina l aortic aneurysm 760917886 Active 2023 Repeat scan 3 yrs from 11/11/23 Alice Lam MD [address], [place], [address] , [facility] 4 14:18:48 Heart murmur 96158404 Active Not Available [facility] 2 08:40:37 Screenin g for malignan t neoplasm of colon Completed 201311/10/2013 RECORDED 09/02/19 14 4:17PM BY TRELL SOLORZANO MA, ANNOTATI ON/ADDEN DUM Not Available [facility] 4 14:08:42 Total urinary incontin ence 056673008 Completed 03/14/2014 Huber Dalton MD [address], [place], [address] , [facility] 4 20:09:39 Coronary atherosc lerosis 337882702 Active PCI to left Cx lesion 12/2012; LVEF 55% Not Available [facility] 2 08:40:37 Essentia l hyperten nick 04086203 Active Not Available [facility] 2 08:40:37 Flatulen ce, eructati on and gas pain 461631367 Completed 03/14/2014 Huber Dalton MD [address], [place], [address] , [facility] 4 20:09:39 Malaise and fatigue 220737162 Completed 201211/10/2013 RECORDED 08/21/19 13 2:42PM BY DENISE CAPUTO MA, ANNOTATI ON/ADDEN DUM Not Available [facility] 4 14:08:43 History of clinical finding in subject 084464607 Completed 03/14/2014 Huber Dalton MD [address], [place], [address] , [facility] 4 20:09:39 Hyperlip idemia 60083336 Active Not Available [facility] 2 08:40:37 Laborato ry procedur e performe d 253781837 Completed 201211/10/2013 RECORDED 12/20/19 13 9:23AM BY TRELL SOLORZANO MA, ANNOTATI ON/ADDEN DUM Not Available [facility] 4 14:08:43 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 2767291 Active Not Available [facility] 2 08:40:37 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 6042893 Completed 201211/10/2013 DATE: 10/2012; ; RECORDED 09/02/19 14 4:17PM BY TRELL SOLORZANO MA, OFFICE VISIT Not Available [facility] 4 14:08:43 Immuniza tion refused Completed 201311/10/2013 RECORDED 09/02/19 14 4:17PM BY TRELL SOLORZANO MA, ANNOTATI ON/ADDEN DUM Not Available [facility] 4 14:08:43 Radiolog y result abnormal 081149991 Completed 201211/10/2013 RECORDED 09/11/19 13 9:33AM BY TRELL SOLORZANO MA, ANNOTATI ON/ADDEN DUM Not Available [facility] 4 14:08:43 Patient status finding 665805061 Completed 03/14/2014 Huber Dalton MD [address] [facility] [address], [place], [address] , [facility] 4 20:09:39 Problem Notes None recorded. Procedures Surgical History Date Name Laterality Status Provider Name and Address Organization Details Recorded Time 4 Advanced Care Planning completed Alice Lam MD [address] [facility] [address], [place], [address], [facility] 03/10/2024 13:39:20 1 Six-Item Cognitive Test completed [facility] 07/11/2020 10:35:34 9 cataract surgery completed Denise moura MA [facility] 06/10/2019 15:34:19 8 Mini-Cog Test completed [facility] 01/06/2018 13:58:18 7 Fall Risk Assessment completed Denise moura MA [facility] 06/04/2016 13:41:21 7 Mini-Cog Test completed Denise moura MA [facility] 06/04/2016 13:43:11 6 Colonoscopy completed Delia Cullen MA [facility] 10/23/2022 14:08:21 Imaging Results None recorded. Procedure Notes None recorded. Medical Equipment None Reported. Allergies Allergen ID Allergen Name Allergen Category Reaction Reaction Severity Criticality Documentation Date Start Date Code Code System Note Provider Name and Address Organization Details Recorded Time 67667 carvedilo l medicatio n lighthead edness nausea Not available Not available Not available 03/06/202334069 RxNorm ALEE Walsh [facility] 3 15:00:19 5203 Product containin g angiotens in-conver ting enzyme inhibitor (product) medicatio n cough Not available Not available 11/10/2013 47149 009 SNOMED Swathi Mcmillan, [facility] [address] [facility] [address], [place], [address], [facility] 4 18:07:31 Medications Name Sig Start Date [...] Available phenytoin sodium extended 100 mg capsule 05/06 /2022 completed Not Available Not Available Not Available [...] Available Not Available Not Available Fluzone High-Dose 9304-1612 (PF) 180 mcg/0.5 mL intramusc ular syringe 05/26 completed Not Available Not Available Not Available Vitals Date Recorded Body height Body mass index (BMI) Body weight Heart rate Oxygen saturation Oxygen saturation in Arterial blood by Pulse oximetry Body temperature Systolic And Diastolic Provider Name and Address Organization Details Last Updated DateTime 4 173.99 cm 28.8 kg/m2 66860.7 4 g 66 /min 95 % 95 % 98 [degF] 131/80 mm[Hg] Marie Luna MA [facility] 4 14:58:50 Date Recorded Body height Body mass index (BMI) Body weight Heart rate Oxygen saturation Oxygen saturation in Arterial blood by Pulse oximetry Body temperature Systolic And Diastolic Provider Name and Address Organization Details Last Updated DateTime 2 173.99 cm 29.2 kg/m2 30782.5 1 g 80 /min 98 % 98 % 98.96 [degF] 113/70 mm[Hg] Conchita Solis MA [facility] 2 14:18:31 Date Recorded Body height Body mass index (BMI) Body weight Oxygen saturation Oxygen saturation in Arterial blood by Pulse oximetry Heart rate Body temperature Systolic And Diastolic Provider Name and Address Organization Details Last Updated DateTime 3 173.99 cm 29.6 kg/m2 21963.1 g 98 % 98 % 79 /min 98.2 [degF] 117/63 mm[Hg] Delia Cullen MA [facility] 3 14:05:01 Date Recorded Body height Body mass index (BMI) Body weight Heart rate Oxygen saturation Oxygen saturation in Arterial blood by Pulse oximetry Body temperature Systolic And Diastolic Provider Name and Address Organization Details Last Updated DateTime 3 173.99 cm 28.8 kg/m2 53308.7 4 g 66 /min 94 % 94 % 98.2 [degF] 112/56 mm[Hg] Denise kraus MA [facility] 3 14:56:59 Date Recorded Body height Body mass index (BMI) Body weight Heart rate Oxygen saturation Oxygen saturation in Arterial blood by Pulse oximetry Body temperature Systolic And Diastolic Provider Name and Address Organization Details Last Updated DateTime 4 173.99 cm 28 kg/m2 36589.0 5 g 65 /min 97 % 97 % 98 [degF] 124/66 mm[Hg] Denise kraus MA [facility] 4 13:01:33 Social History Question Answer Notes LastModified by Organizat ion Details LastModified Time Tobacco Smoking Status Current Every Day Smoker ALEE Mckeon [facility] 01/12/2021 13:07:17 Do You Have An Advance Directive? No HCP Declined; Does Not Know Who To Choose [facility] Information not available 03/15/2015 Is Blood Transfusion Acceptable In An Emergency? Yes It Depends [email or web address] not available 03/15/2015 What Is Your [...] available 03/15/2015 Have You Served In The Evince? Yes [email or web address] Information not available 06/04/2016 Have You Or Anyone In Your Household Had Any Of The Following Symptoms In The Last 14 Days: Sore Throat, Cough, Chills, Body Aches For Unknown Reasons, Shortness Of Breath For Unknown Reasons, Loss Of Smell, Loss Of Taste, Fever At Or Greater Than 100 Degrees Fahrenheit? No [email or web address] Information not available 07/11/2020 Are You Or Anyone In Your Household A Health Care Provider Or Emergency Responder? No [email or web address] Information not available 07/11/2020 To The Best Of Your Knowledge Have You Been In Close Proximity To Any Individual Who Tested Positive For COVID-19? No [email or web address] Information not available 07/11/2020 *AWV ONLY* Are You Presently Prescribed Opioid Medication By PCP Or Specialist? If YES -Provider Assess The Benefit For Other, Non-opioid Pain Therapies Instead, Even If The Patient Does Not Have OUD But Is Possibly At Risk. No [email or web address] Information not available 07/11/2020 Have You Recently Traveled To A COVID-19 High Risk Area Or Gathering In The Last 10 Days? No [email or web address] Information not available 07/11/2020 What Was The Date Of Your Most Recent Tobacco Screening? 03/10/2024 Information not available 03/10/2024 How Many Children Do You Have? 0 Information not available 03/09/2014 What Is Your Current Pack Years? 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 Information not available 01/12/2021 Do you [...] Recorded Time zoster live 014 completed Laura cortes [facility] 09/08/2021 09:55:39 Influenza, high-dose, trivalent, PF 018 completed ALEE Florence [facility] 10/23/2022 13:58:31 zoster recombinant 018 completed Laura Chapin null, [facility] 09/08/2021 09:55:39 Td (adult) 014 completed Laura Dolanilla sophia, [facility] 09/08/2021 09:55:39 COVID-19, mRNA, LNP-S, PF, 30 mcg/0.3 mL dose 021 completed ALEE Florence [facility] 10/23/2022 13:58:31 COVID-19, mRNA, LNP-S, PF, 30 mcg/0.3 mL dose 021 completed ALEE Florence [facility] 10/23/2022 13:58:31 COVID-19, mRNA, LNP-S, PF, 30 mcg/0.3 mL dose 021 completed ALEE Florence [facility] 10/23/2022 13:58:31 COVID-19, mRNA, LNP-S, PF, 30 mcg/0.3 mL dose, leyda-sucrose 022 completed ALEE Florence, [facility] 10/23/2022 14:05:24 Influenza, adjuvanted, quadrivalent, PF 021 completed ALEE Florence, [facility] 10/23/2022 13:58:31 Tdap 018 completed ALEE Florence, [facility] 10/23/2022 13:58:31 DTP 014 completed ALEE Florence, [facility] 10/23/2022 13:58:31 Pneumococcal conjugate PCV 13 017 completed Not Available [facility] 05/16/2019 02:21:37 pneumococcal polysaccharide PPV23 018 completed Not Available [facility] 05/16/2019 02:21:28 Influenza, high-dose, trivalent, PF 018 cancelled patient objection Not Available [facility] 05/16/2019 02:22:14 Influenza, high-dose, quadrivalent, PF 023 completed Alice Lam MD [address], [address], [facility] 03/06/2023 15:27:24 Influenza, high-dose, trivalent, PF 024 completed ALEE Montero, [facility] 03/10/2024 16:17:45 Past Encounters Encounter ID Performer Location Encounter Start Date Encounter Closed Date Diagnosis/Indication Diagnosis SNOMED-CT Code Diagnosis ICD10 Code Diagnosis Note [id number] autoEComm erce [address] [facility] [place] [address] 07/30/2012 00:00:00 [id number] autoEComm erce [address] [facility] [facility] [place] [address] 08/20/2012 00:00:00 [id number] [facility]Comm [facility] [address] [facility] [place] [address] 10/20/2012 00:00:00 [id number] autoEComm andrewe [address] [facility] [address] [place], [place] [address] 11/25/2012 00:00:00 [id number] autoEComm andrewe [address] [facility] [address] [place], [place] [address] 02/27/2013 00:00:00 [id number] auto[facility] andrewe [address] [facility] [address] [place], [place] [address] 09/01/2013 00:00:00 [id number] Huber Dalton MD Main Office [address] [facility] [address] [place] [address] 03/09/2014 15:55:48 03/09/2014 17:10:41 Essential hypertension 00297766 Hyperlipidemia 44180452 Adult heal th examination 889158020 Fatigue 61009270 Benign pro static hyperplasia with outflow obstruction 722452359 Screening for malignant neoplasm of colon 172332459 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 Occluded RCA did not have PCI. 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 8812437 10/2012 Tobacco de pendence syndrome 24299819 [id number] Huber Dalton MD Main Office [address] [facility] [address] [place] [address] 03/15/2015 15:18:28 03/15/2015 16:49:29 Adult health examination 685975738 Z00.00 Essential hypertension 05318897 I10 Screening for malignant neoplasm of colon 777666516 Z12.11 Hyperlipidemia 00139706 E78.5 Lesion of scalp 78697903 91 00 L98.9 Tobacco de pendence syndrome 16101683 F17.290 [id number] Huber Dalton MD Main Office [address] [facility] [address] [place] [address] 10/25/2015 14:38:30 10/25/2015 15:39:20 Blood in urine 65570595 R31.9 Benign pro static hyperplasia with outflow obstruction 523515078 N40.1 [id number] Huber Dalton MD Main Office [address] [address] [place] [address] 06/04/2016 13:17:14 06/04/2016 14:36:53 Adult health examination 343355740 Z00.00 Hyperlipidemia 67494667 E78.5 Fatigue 55378419 R53.83 Benign pro static hyperplasia with outflow obstruction 027957789 N40.1 Essential hypertension 31910959 I10 Tobacco de pendence syndrome 28276438 F17.290 Administra tion of pneumococcal vaccine 73978686 Z23 Lesion of scalp 21791689 91 00 L98.9 Coronary atherosclerosis 872077988 I25.10 PCI to left Cx lesion 12/2012; LVEF 55% [id number] Huber Dalton MD Main Office [address] [address] [place] [address] 01/06/2018 13:33:37 01/06/2018 14:43:32 Administration of pneumococcal vaccine 68325306 Z23 Hepatitis C screening 41 8159200 Z11.59 Essential hypertension 39360193 I10 Administra tion of diphtheria and tetanus vaccine 18674289 Z23 Adult [facility] th examination 995607139 Z00.00 Immunization refused 275 465078 Z28.21 Coronary atherosclerosis 604475281 I25.10 PCI to left Cx lesion 12/2012; LVEF 55% Hyperlipidemia 01176629 E78.5 Tobacco de pendence syndrome 92885225 F17.290 Benign pro static hyperplasia with outflow obstruction 097084702 N40.1 Blurring o f visual image 618044013 H53.8 Fatigue 71576474 R53.83 Obesity 018651906 E66.9 Body mass index 30+ - obesity 817988545 Z68.30 [id number] Huber Dalton MD Main Office [address] [address] [place] [address] 05/26/2018 13:34:21 05/26/2018 14:39:41 Prediabetes 961228324 R73.03 Discussed pathophysi ology of Prediabete s [...] recommende d to test glucose at home. [id number] Maci cabral MD Main Office [address] [facility] [address] [facility] [place] [address] 07/04/2018 13:21:21 07/04/2018 14:27:09 Pre-surgery evaluation 203138631 Z01.818 not pt is on alpha 1 [...] 07/15/18 Labs done today Foot pulses absent 63786 3008 R09.89 pt with some claudicati on sx, would check LASHAWN and followup with Dr Dalton as planned Prolonged QT interval 11 1951635 I45.81 not on any new meds, do labs today, followup with cardiology . 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 Patient advised to avoid aspirin and NSAIDS for 7 days prior. but will discuss this with the surgeon. May proceed to scheduled surgery as planned. EKG unchanged. [place] 0.2% Cataract 214208056 H26.9 Essential hypertension 98128340 I10 [id number] Jackson Olivo MD Main Office [address] [facility] [address] [place] [address] 06/10/2019 15:03:27 06/10/2019 16:29:26 Pre-surgery evaluation 897886547 Z01.818 Prolonged QT interval 11 9160920 I45.81 pt had normal mag level 3.19 - will recheck *will fwd to card for review of updated ekg with prolonged QT interval, and please respond regarding results/up dated clearance/ recommenda tions - thank you! * Prediabetes 952106061 R7 3.03 a1c of 6.1 back in 1.19 Essential hypertension 90087821 I10 stable, cont meds as dir, cont f/u c card Coronary atherosclerosis 313251008 I25.10 PCI to left Cx lesion 12/2012; LVEF 55% Cataract 434428995 H25.0 12 [id number] Huber Dalton MD Main Office [address] [facility] [address] [place] [address] 07/17/2019 09:07:05 07/17/2019 13:52:43 Aneurysm of thoracic aorta 253871175 I71.2 4.0cm of ascending aorta (CT chest 06/2019) Multiple n odules of lung 227489033 R91.8 Tobacco user 143437885 Z 72.0 Still not motivated to quit in the near team. Plans to quit in September 2019 when his brand of menthol cigarettes are no longer available [id number] Jackson Olivo MD Main Office [address] [facility] [address] [place] [address] 07/11/2020 10:19:37 07/11/2020 11:33:07 Adult health examination 221500393 Z00.00 Essential hypertension 17618197 I10 stable, cont meds as dir, cont f/u c card Hyperlipidemia 70173719 E78.5 Coronary atherosclerosis 383026697 I25.10 PCI to left Cx lesion 12/2012; LVEF 55% - cont f/u c card Tobacco de pendence syndrome 19726007 F17.[address] 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 - pending see pulm next month Aneurysm o f thoracic aorta 095381866 I71.2 cont f/u c card Poor visual acuity 07193 8008 H53.8 pt states he does not wish to f/u c his current eye md - encouraged him to go next door Body mass index 25-29 - overweight 464344857 E66.3 Z68.29 Prediabetes 440386250 R7 3.03 a1c of 6.1 back in 2.20 - enc less candy and stop juice Benign pro static hyperplasia with outflow obstruction 856033524 N40.1 cont med, f/u c uro History of polyp of colon 930340457 Z86.010 Nicotine dependence 5629 4008 F17.200 [id number] Alice Lam MD Main Office [address] [facility] [address] [facility] [address] 09/30/2020 10:31:45 09/30/2020 10:59:02 Pre-surgery evaluation 914879190 Z01.818 1. Pre-Surgic al Evaluation /Surgical Clearance [...] exertional tolerance and overall procedure risk. 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 [id number] Jamshid Aguilera PA-C Main Office [address] [facility] [address] [place] [address] 12/14/2020 15:37:36 12/14/2020 16:39:47 Coronary atherosclerosis 376196670 I25.10 PCI to left Cx lesion 12/2012; LVEF 55% - cont f/u c card Essential hypertension 52142219 I10 stable / low side of normal but pt is asymptomat ic, cont meds as dir, cont f/u c card Prediabetes 809972987 R7 3.03 a1c 6.2 - enc less candy and stop juice Tobacco de pendence syndrome 61353314 F17.[address] smoker. 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 - pending see pulm 11.21 Ulcer of palate 31314064 4 K12.1 Pre-surger y evaluation 707387151 Z01.818 [id number] Jackson Olivo MD Main Office [address] [facility] [address] [place] [address] 01/12/2021 12:53:22 01/12/2021 13:45:47 Essential hypertension 10036132 I10 stable bp, cont meds as dir, cont f/u c card, check bmp Aneurysm o f thoracic aorta 912213812 I71.2 cont f/u c card Prediabetes 869864791 R7 3.03 a1c 6.2 - enc less candy and stop juice Benign pro static hyperplasia with outflow obstruction 111488889 N40.1 cont med, f/u c uro Ulcer of palate 28691584 4 K12.1 s/p surgery - cont f/u c ENT [id number] Alice Lam MD Main Office [address] [facility] [address] [place] [address] 07/17/2021 13:32:31 07/17/2021 14:47:01 Adult health examination 149921263 Z00.00 Patient was counseled on healthy diet, exercise and nutrition due to Body mass index is 30 kg/m . Last PSADate: 08/29/20Resu lt: 3.2Plan: ordered Last Colonoscop y:Date:Res ult:Plan:d ue referral placed. Vaccines:T d: 03/29/14Zos ter: 02/10/18, advised to get second dose, [id number]: 06/04/16PPSV 23: 01/06/18Inf luenza: Not in season.Cov id: 07/27/20, 08/20/20, 02/27/21 Routine labs today Immunizati on status reviewed. Will screen based on risk factors. Regular dental and ophtho care advised as well as seat belt and sunscreen use. Distracted driving discussed. Medication reconciled . Advance directives discussed. Aneurysm o f thoracic aorta 918793210 I71.2 per note on 01/12/21 pt is following card. Essential hypertension 12759278 I10 stable bp, cont meds as dir, cont f/u c card, check bmp Prediabetes 509763119 R7 3.03 a1c 6.2 - enc less candy and stop juice Benign pro static hyperplasia with outflow obstruction 216573969 N40.1 cont med, f/u c uro Ulcer of palate 66906675 4 K12.1 s/p surgery - cont f/u c ENT Fatigue 16780741 R53.83 Hyperlipidemia 69111084 E78.5 Screening for malignant neoplasm of colon 629385237 Z12.11 Nicotine dependence 5629 4008 F17.200 had discussion , declined therapy at this time.Risk of smoking discussed. Had AAA screening CT chest by pulm scheduled for 08/11/21 Body mass index 30+ - obesity 845028105 Z68.30 - Diet and exercise discussed- Patient made aware of risks of obesity- Encouraged to loose weight. Goal set to loose weight at 1-1.5 Lbs/week- Avoid starchy and fatty food- Encouraged use of green vegetables and fruits Obesity 098962873 E66.9 Memory impairment 542591 006 R41.3 See 6-cit. Will get labs, re-eval next visti and [id number] Alice Lam MD Main Office [address] [facility] [address] [facility] [place] [address] 09/01/2021 13:37:28 09/01/2021 14:44:55 Aneurysm of thoracic aorta 505494656 I71.2 per note on 01/12/21 pt is following card. Nicotine dependence 5629 4008 F17.200 had discussion , declined therapy at this time.Risk of smoking discussed. Had AAA screening 2020Has CT chest by pulm scheduled for 08/11/21 Prediabetes 654184232 R7 3.03 a1c 6.2 - enc less candy and stop juiceRepea t blood work in Feb Essential hypertension [id number] I10 stable bp, cont meds as dir, cont f/u c card, check bmp [id number] Alice Lam MD Main Office [address] [facility] [address] [facility] [place] [address] 10/23/2022 13:43:21 10/23/2022 14:52:11 Adult health examination 312744505 Z00.00 UTD on vaccines. Coronary atherosclerosis [id number] I25.10 Patient is still smoking. Resources given F/u with Dr. Mar Essential hypertension 36226225 I10 stable on current medication s. Tobacco de pendence syndrome 63892689 F17.200 Smoker since age 16. 1/2 pack per year. Not ready to quit. Benign pro static hyperplasia with outflow obstruction 098150328 N40.1 Stable - cont meds and f/u w urology Hyperlipidemia 73578879 E78.5 Cont statin therapy - will recheck labs Prediabetes 400839096 R7 3.03 Advised pt to continue low fat diet and limit amount of carbs. Increase exercise. A1c was 6.1%. repeat in 6 m. Posttrauma tic stress disorder 45939253 F43.10 recommend to see psych Benign pro static hyperplasia 629027272 N40.0 Pt. reports 1 year ago surgery was discussed with Dr. Patino, but office never reached out to pt. Pulmonary emphysema 8743 3001 J43.9 Advised pt to stop smoking. Moderate r ecurrent major depression 58193182 F33.1 PHQ score is 13, pt. is interested i therpay , but declines medication s. Recommend to see psych for management of depression , PTSD and anxiety. [id number] Alice Lam MD Main Office [address] [address] 03/06/2023 14:46:04 03/06/2023 15:33:12 Moderate recurrent major depression 60746298 F33.1 Decline med[facility]No thoughts of self harm or harming others. Essential hypertension 45495412 I10 stable bp, cont meds as dir, cont f/u c card, check bmp Influenza vaccine needed 3335198837 106 Z23 Screening for malignant neoplasm of lung 984865600 Z87.891 Eligible patients must have >=20 pack years Tobacco de pendence syndrome 04240627 F17.200 Smoking cessation discussed. [id number] Alice Lam MD Main Office [address] [address] 08/07/2023 14:43:16 08/07/2023 15:24:08 Essential hypertension 59206639 I10 stable bp, cont meds as dir, cont f/u c card Coronary atherosclerosis 600254740 I25.10 Follows cards Moderate r ecurrent major depression 95808825 F33.1 Decline [facility]s [facility] psychDecli andreina thoughts of self harm or harming others. Pulmonary emphysema 8743 3001 J43.9 Stable without needs of inhaler. Tobacco de pendence syndrome 88631790 F17.200 Smoking cessation discussed. No motivation to quite at this time. Benign pro static hyperplasia with outflow obstruction 334774991 N40.1 cont med, f/u c uroPt. reports 1 year ago surgery was discussed with Dr. Zuleta, but office never reached out to pt. encourage to do so due to elevated PSA and hx of hematuria in setting of smoking. Abdominal aortic aneurysm 215300096 I71.40 Will repeat sonogram for interval follow up. Aneurysm o f thoracic aorta 270352565 I71.20 Intermitte nt claudication 85749243 I73.9 Has some pain in legs while walking, is a heavy smoker will check lashawn/pvr.Ad vised to continue to ambulate continue asprin. [id number] Alice Lam MD Main Office [address] [facility] [address] [facility] [place] [address] 03/10/2024 12:34:36 03/10/2024 13:58:07 Adult health examination 613995015 Z00.00 Patient was counseled on healthy diet, exercise and nutrition due to Body mass index is 28 kg/m . Last PSADate: 03/06/23Res ult: 4.3Plan: Follows urology Last Colonoscop y:Date: 07/12/15Res ult: Hyperplast ic polyp less than 10mmPlan: low risk in rectum repeat 10 yrs per guideline Vaccines:T d: 02/10/18Zo ster: 02/10/18, advised to get second dose, [id number]: 06/04/16PPSV 23: 01/06/18PCV 20: Discussed. Influenza: 03/10/24Co vid: encouraged updated vaccineRSV : Discussed. Routine labs today Immunizati on status reviewed. Will screen based on risk factors. Regular dental and ophtho care advised as well as seat belt and sunscreen use. Distracted driving discussed. Medication reconciled . Advance directives discussed. Aneurysm o f thoracic aorta 964258892 I71.20 Will refer to vascular due to poor compliance .Has been taking metoprolol from cards, will add 25mg. Essential hypertension 83924990 I10 stable bp, cont meds as dir, cont f/u c card, check bmp Prediabetes 224613804 R7 3.03 a1c 6.2 - enc less candy and stop juice Benign pro static hyperplasia with outflow obstruction 681712371 N40.1 cont med, f/u c uro Ulcer of palate 69076606 4 K12.1 s/p surgery - cont f/u c ENT Fatigue 40352510 R53.83 Hyperlipidemia 50855349 E78.5 Nicotine dependence 5629 4008 F17.200 had discussion , declined therapy at this time.Risk of smoking discussed. Had AAA screening 11/11/23Wil l refer to vascular. LDCT:Date: 08/01/23Resu lt: Lung Rad-2Plan: Repeat next year. Smoking cessation discussed. Obesity 183835345 E66.9 Body mass index 30+ - obesity 803696747 Z68.30 - Diet and exercise discussed- Patient made aware of risks of obesity- Encouraged to loose weight. Goal set to loose weight at 1-1.5 Lbs/week- Avoid starchy and fatty food- Encouraged use of green vegetables and fruits Influenza vaccine needed 6488670440 106 Z23 65 YEARS AND OLDER Peripheral vascular disease 158757328 I73.9 I71.40 Advance di rective discussed with patient 818188425 Z71.89 MOLST and HCP stands. Weight loss 27133338 R63 .4 Notes to cange in diet.Will [...] Kim Member ID Guarantor Name 08/12/2024 1 [facility] (MEDICARE REPLACEMENT/ ADVANTAGE - HMO) [id number] Raúl Lopez [id number] Raúl Lopez 08/12/2024 1 [facility] (MEDICARE REPLACEMENT/ ADVANTAGE - PPO) [id number] Raúl Lopez [id number] Raúl Lopez 03/10/2024 1 [facility] (PPO) [id number] Raúl Lopez Jr [id number] Raúl Lopez 03/10/2024 1 MEDICARE B-[place]: [employer] [facility] Raúl Lopez Jr [id number] Raúl Lopez 03/10/2024 1 [facility]: O BLUE [id number] Raúl Lopez Jr [id number] Raúl Lopez Notes Date Note Type [...] in regimen. Follows Dr. Zaid Lam MD [address] [address], [place], [address], [facility] 09/01/2021 14:35:56 3 text/html Coronary Artery Disease [...] with 10 year recall Ashley Aguilera PA-C [address] [address], [place], [address], [facility] 10/23/2022 17:06:23 3 text/html Hypertension F/UReported bypatient.Associated [...] interest for smoking cessation. Alice Lam MD [address] [address], [place], [address], [facility] 03/06/2023 15:27:50 4 text/html Hypertension F/UReported bypatient.Associated [...] for smoking cessation. Alice Lam MD [address], [address], [facility] 08/07/2023 15:28:25 4 text/html Coronary Artery Disease [...] fitness and weight management. Alice Lam MD [address], [address], [facility] 03/10/2024 13:46:27
== END 2024-11-03 14:02 | disposition home or self-care (01) ==
LOC: HO.HVS 13:35
PROVIDERS: PCP Family Medicine; Visit Provider Surgery Vascular Surgery
DX: I73.9 Peripheral vascular disease, unspecified (principal)
CPT/HCPCS: 99214; G2211

== ENCOUNTER → 2024-11-03 13:34 | Outpatient (BNVA) | payer MEDICARE, SELFPAY | PROVIDERS: PCP Family Medicine; Visit Provider Surgery Vascular Surgery | DX: I73.9 Peripheral vascular disease, unspecified (principal) | CPT/HCPCS: 99212 ==